=== PATIENT | male | born 1960 | race Caucasian/White ===

== ENCOUNTER 2018-11-03 15:09 | Outpatient (CLI) | payer OTHER ==
[2018-11-03 18:05] LABS: BASOPHILS # (AUTO) 0.1 10^3/uL (0.0-0.1); EOSINOPHILS # (AUTO) 0.1 10^3/uL (0.0-0.7); EOSINOPHILS % (AUTO) 1.6 %; HGB - HEMOGLOBIN 11.5 g/dL (14.0-18.0); LYMPHOCYTES # (AUTO) 1.3 10^3/uL (1.5-3.5); LYMPHOCYTES % (AUTO) 15.3 %; MEAN CORPUSCULAR HEMOGLOBIN 31.3 pg (27.0-31.0); MEAN CORPUSCULAR HGB CONC 33.8 g/dL (32.0-36.0); MEAN CORPUSCULAR VOLUME 92.7 fL (80.0-94.0); MEAN PLATELET VOLUME 8.4 fL (7.4-11.4); MONOCYTES # (AUTO) 0.5 10^3/uL (0.0-1.0); NEUTROPHILS # (AUTO) 6.7 10^3/uL (1.5-6.6); NEUTROPHILS % (AUTO) 76.1 %; PLT - PLATELET COUNT 276 10^3/uL (130-450); RED BLOOD COUNT 3.66 10^6/uL (4.70-6.10); RED CELL DISTRIBUTION WIDTH 13.2 % (12.0-15.0); WHITE BLOOD COUNT 8.8 x10^3/uL (4.8-10.8)
== END 2018-11-03 15:10 | disposition home or self-care (01) ==
LOC: LAB.F 15:09
PROVIDERS: ATTEND Emergency Medicine
DX: N18.4 Chronic kidney disease, stage 4 (severe) (principal)
CPT/HCPCS: 36415; 82565; 85025

== ENCOUNTER 2018-11-17 12:55 | Outpatient (CLI) | payer OTHER ==
[2018-11-17 17:43] LABS: BASOPHILS % (AUTO) 0.9 %; EOSINOPHILS # (AUTO) 0.2 10^3/uL (0.0-0.7); EOSINOPHILS % (AUTO) 3.7 %; HGB - HEMOGLOBIN 11.2 g/dL (14.0-18.0); LYMPHOCYTES # (AUTO) 1.3 10^3/uL (1.5-3.5); LYMPHOCYTES % (AUTO) 23.9 %; MEAN CORPUSCULAR HEMOGLOBIN 31.4 pg (27.0-31.0); MEAN CORPUSCULAR HGB CONC 33.6 g/dL (32.0-36.0); MEAN CORPUSCULAR VOLUME 93.3 fL (80.0-94.0); MEAN PLATELET VOLUME 8.7 fL (7.4-11.4); MONOCYTES # (AUTO) 0.4 10^3/uL (0.0-1.0); MONOCYTES % (AUTO) 8.3 %; NEUTROPHILS # (AUTO) 3.4 10^3/uL (1.5-6.6); NEUTROPHILS % (AUTO) 63.2 %; PLT - PLATELET COUNT 231 10^3/uL (130-450); RED BLOOD COUNT 3.56 10^6/uL (4.70-6.10); WHITE BLOOD COUNT 5.3 x10^3/uL (4.8-10.8)
[2018-11-17 17:58] LABS: CREATININE 4.4 mg/dL (0.6-1.2)
== END 2018-11-17 12:56 | disposition home or self-care (01) ==
LOC: LAB.F 12:55
PROVIDERS: ATTEND Emergency Medicine
DX: N18.4 Chronic kidney disease, stage 4 (severe) (principal)
CPT/HCPCS: 36415; 82565; 85025

== ENCOUNTER 2018-12-04 13:43 | Outpatient (CLI) | payer OTHER ==
[2018-12-04 18:18] LABS: BASOPHILS % (AUTO) 0.5 %; EOSINOPHILS # (AUTO) 0.2 10^3/uL (0.0-0.7); EOSINOPHILS % (AUTO) 3.4 %; HGB - HEMOGLOBIN 11.5 g/dL (14.0-18.0); LYMPHOCYTES # (AUTO) 1.5 10^3/uL (1.5-3.5); LYMPHOCYTES % (AUTO) 26.6 %; MEAN CORPUSCULAR HEMOGLOBIN 31.1 pg (27.0-31.0); MEAN CORPUSCULAR HGB CONC 33.1 g/dL (32.0-36.0); MEAN CORPUSCULAR VOLUME 93.9 fL (80.0-94.0); MEAN PLATELET VOLUME 8.5 fL (7.4-11.4); MONOCYTES # (AUTO) 0.4 10^3/uL (0.0-1.0); MONOCYTES % (AUTO) 7.3 %; NEUTROPHILS # (AUTO) 3.4 10^3/uL (1.5-6.6); NEUTROPHILS % (AUTO) 62.2 %; PLT - PLATELET COUNT 235 10^3/uL (130-450); RED BLOOD COUNT 3.72 10^6/uL (4.70-6.10); RED CELL DISTRIBUTION WIDTH 13.1 % (12.0-15.0); WHITE BLOOD COUNT 5.5 x10^3/uL (4.8-10.8)
[2018-12-04 18:43] LABS: CREATININE 3.5 mg/dL (0.6-1.2)
== END 2018-12-04 13:44 | disposition home or self-care (01) ==
LOC: LAB.F 13:43
PROVIDERS: ATTEND Emergency Medicine
DX: N18.4 Chronic kidney disease, stage 4 (severe) (principal)
CPT/HCPCS: 36415; 82565; 85025

== ENCOUNTER 2018-12-17 11:10 | Outpatient (CLI) | payer OTHER ==
[2018-12-17 18:01] LABS: BASOPHILS % (AUTO) 0.7 %; EOSINOPHILS # (AUTO) 0.2 10^3/uL (0.0-0.7); EOSINOPHILS % (AUTO) 2.7 %; LYMPHOCYTES # (AUTO) 1.1 10^3/uL (1.5-3.5); MEAN CORPUSCULAR HEMOGLOBIN 31.2 pg (27.0-31.0); MEAN CORPUSCULAR HGB CONC 34.2 g/dL (32.0-36.0); MEAN CORPUSCULAR VOLUME 91.2 fL (80.0-94.0); MEAN PLATELET VOLUME 8.7 fL (7.4-11.4); MONOCYTES # (AUTO) 0.5 10^3/uL (0.0-1.0); MONOCYTES % (AUTO) 7.9 %; NEUTROPHILS # (AUTO) 3.9 10^3/uL (1.5-6.6); NEUTROPHILS % (AUTO) 68.7 %; PLT - PLATELET COUNT 203 10^3/uL (130-450); RED BLOOD COUNT 3.51 10^6/uL (4.70-6.10); RED CELL DISTRIBUTION WIDTH 12.9 % (12.0-15.0); WHITE BLOOD COUNT 5.7 x10^3/uL (4.8-10.8)
[2018-12-17 18:25] LABS: CREATININE 3.9 mg/dL (0.6-1.2)
== END 2018-12-17 23:59 | disposition home or self-care (01) ==
LOC: LAB.F 11:10
PROVIDERS: ATTEND Emergency Medicine
DX: N18.4 Chronic kidney disease, stage 4 (severe) (principal)
CPT/HCPCS: 36415; 82565; 82728; 83540; 84466; 85025

== ENCOUNTER 2019-01-01 13:45 | Outpatient (CLI) | payer OTHER ==
[2019-01-01 17:38] LABS: BASOPHILS % (AUTO) 0.7 %; EOSINOPHILS # (AUTO) 0.2 10^3/uL (0.0-0.7); EOSINOPHILS % (AUTO) 2.7 %; HGB - HEMOGLOBIN 11.3 g/dL (14.0-18.0); LYMPHOCYTES # (AUTO) 1.3 10^3/uL (1.5-3.5); LYMPHOCYTES % (AUTO) 24.1 %; MEAN CORPUSCULAR HEMOGLOBIN 31.2 pg (27.0-31.0); MEAN CORPUSCULAR HGB CONC 34.3 g/dL (32.0-36.0); MEAN PLATELET VOLUME 8.4 fL (7.4-11.4); MONOCYTES # (AUTO) 0.5 10^3/uL (0.0-1.0); MONOCYTES % (AUTO) 8.6 %; NEUTROPHILS # (AUTO) 3.6 10^3/uL (1.5-6.6); NEUTROPHILS % (AUTO) 63.9 %; PLT - PLATELET COUNT 251 10^3/uL (130-450); RED BLOOD COUNT 3.61 10^6/uL (4.70-6.10); RED CELL DISTRIBUTION WIDTH 13.2 % (12.0-15.0); WHITE BLOOD COUNT 5.6 x10^3/uL (4.8-10.8)
[2019-01-01 18:11] LABS: CREATININE 4.2 mg/dL (0.6-1.2)
== END 2019-01-01 13:46 | disposition home or self-care (01) ==
LOC: LAB.F 13:45
PROVIDERS: ATTEND Emergency Medicine
DX: N18.4 Chronic kidney disease, stage 4 (severe) (principal)
CPT/HCPCS: 36415; 82565; 83540; 84466; 85025

== ENCOUNTER 2019-02-01 11:41 | Outpatient (CLI) | payer OTHER ==
[2019-02-01 17:59] LABS: BASOPHILS % (AUTO) 0.5 %; EOSINOPHILS # (AUTO) 0.2 10^3/uL (0.0-0.7); EOSINOPHILS % (AUTO) 2.7 %; HGB - HEMOGLOBIN 11.4 g/dL (14.0-18.0); LYMPHOCYTES # (AUTO) 1.3 10^3/uL (1.5-3.5); LYMPHOCYTES % (AUTO) 22.7 %; MEAN CORPUSCULAR HEMOGLOBIN 31.4 pg (27.0-31.0); MEAN CORPUSCULAR HGB CONC 33.9 g/dL (32.0-36.0); MEAN CORPUSCULAR VOLUME 92.6 fL (80.0-94.0); MEAN PLATELET VOLUME 8.5 fL (7.4-11.4); MONOCYTES # (AUTO) 0.5 10^3/uL (0.0-1.0); MONOCYTES % (AUTO) 8.6 %; NEUTROPHILS # (AUTO) 3.7 10^3/uL (1.5-6.6); NEUTROPHILS % (AUTO) 65.5 %; PLT - PLATELET COUNT 222 10^3/uL (130-450); RED BLOOD COUNT 3.63 10^6/uL (4.70-6.10); RED CELL DISTRIBUTION WIDTH 13.6 % (12.0-15.0); WHITE BLOOD COUNT 5.7 x10^3/uL (4.8-10.8)
[2019-02-01 20:29] LABS: CREATININE 4.5 mg/dL (0.6-1.2)
== END 2019-02-01 11:42 | disposition home or self-care (01) ==
LOC: LAB.F 11:41
PROVIDERS: ATTEND Emergency Medicine
DX: N18.4 Chronic kidney disease, stage 4 (severe) (principal)
CPT/HCPCS: 36415; 82565; 83540; 84466; 85025

== ENCOUNTER 2019-02-26 11:45 | Outpatient (CLI) | payer OTHER ==
[2019-02-26 17:40] LABS: BASOPHILS # (AUTO) 0.1 10^3/uL (0.0-0.1); BASOPHILS % (AUTO) 1.2 %; EOSINOPHILS # (AUTO) 0.2 10^3/uL (0.0-0.7); EOSINOPHILS % (AUTO) 3.9 %; LYMPHOCYTES # (AUTO) 1.2 10^3/uL (1.5-3.5); LYMPHOCYTES % (AUTO) 26.6 %; MEAN CORPUSCULAR HEMOGLOBIN 31.1 pg (27.0-31.0); MEAN CORPUSCULAR HGB CONC 33.7 g/dL (32.0-36.0); MEAN CORPUSCULAR VOLUME 92.4 fL (80.0-94.0); MEAN PLATELET VOLUME 8.7 fL (7.4-11.4); MONOCYTES # (AUTO) 0.4 10^3/uL (0.0-1.0); MONOCYTES % (AUTO) 9.5 %; NEUTROPHILS # (AUTO) 2.6 10^3/uL (1.5-6.6); NEUTROPHILS % (AUTO) 58.8 %; PLT - PLATELET COUNT 213 10^3/uL (130-450); RED BLOOD COUNT 3.53 10^6/uL (4.70-6.10); RED CELL DISTRIBUTION WIDTH 13.5 % (12.0-15.0); WHITE BLOOD COUNT 4.5 x10^3/uL (4.8-10.8)
== END 2019-02-26 23:59 | disposition home or self-care (01) ==
LOC: LAB.F 11:45
PROVIDERS: ATTEND Emergency Medicine
DX: N18.4 Chronic kidney disease, stage 4 (severe) (principal)
CPT/HCPCS: 36415; 82565; 83540; 84466; 85025

== ENCOUNTER 2019-03-30 11:50 | Outpatient (CLI) | payer OTHER ==
[2019-03-30 18:04] LABS: BASOPHILS # (AUTO) 0.1 10^3/uL (0.0-0.1); BASOPHILS % (AUTO) 0.9 %; EOSINOPHILS # (AUTO) 0.3 10^3/uL (0.0-0.7); HGB - HEMOGLOBIN 11.2 g/dL (14.0-18.0); LYMPHOCYTES # (AUTO) 1.2 10^3/uL (1.5-3.5); LYMPHOCYTES % (AUTO) 19.1 %; MEAN CORPUSCULAR HEMOGLOBIN 30.4 pg (27.0-31.0); MEAN CORPUSCULAR HGB CONC 32.8 g/dL (32.0-36.0); MEAN CORPUSCULAR VOLUME 92.7 fL (80.0-94.0); MONOCYTES # (AUTO) 0.5 10^3/uL (0.0-1.0); MONOCYTES % (AUTO) 8.5 %; NEUTROPHILS # (AUTO) 4.2 10^3/uL (1.5-6.6); NEUTROPHILS % (AUTO) 67.2 %; PLT - PLATELET COUNT 201 10^3/uL (130-450); RED BLOOD COUNT 3.68 10^6/uL (4.70-6.10); WHITE BLOOD COUNT 6.3 x10^3/uL (4.8-10.8)
[2019-03-30 18:33] LABS: CREATININE 4.5 mg/dL (0.6-1.2)
== END 2019-03-30 11:51 | disposition home or self-care (01) ==
LOC: LAB.F 11:50
PROVIDERS: ATTEND Emergency Medicine
DX: N18.4 Chronic kidney disease, stage 4 (severe) (principal)
CPT/HCPCS: 36415; 82565; 83540; 84466; 85025

== ENCOUNTER 2019-04-28 14:24 | Outpatient (CLI) | payer OTHER ==
[2019-04-28 17:11] LABS: BASOPHILS % (AUTO) 0.6 %; EOSINOPHILS % (AUTO) 0.6 %; HGB - HEMOGLOBIN 10.5 g/dL (14.0-18.0); LYMPHOCYTES # (AUTO) 0.4 10^3/uL (1.5-3.5); LYMPHOCYTES % (AUTO) 10.5 %; MEAN CORPUSCULAR HEMOGLOBIN 29.9 pg (27.0-31.0); MEAN CORPUSCULAR HGB CONC 32.3 g/dL (32.0-36.0); MEAN CORPUSCULAR VOLUME 92.6 fL (80.0-94.0); MEAN PLATELET VOLUME 10.5 fL (7.4-11.4); MONOCYTES # (AUTO) 0.5 10^3/uL (0.0-1.0); MONOCYTES % (AUTO) 15.5 %; NEUTROPHILS # (AUTO) 2.5 10^3/uL (1.5-6.6); NEUTROPHILS % (AUTO) 72.5 %; PLT - PLATELET COUNT 194 10^3/uL (130-450); RED BLOOD COUNT 3.51 10^6/uL (4.70-6.10); WHITE BLOOD COUNT 3.4 x10^3/uL (4.8-10.8)
[2019-04-28 18:38] LABS: CREATININE 4.3 mg/dL (0.6-1.2)
== END 2019-04-28 14:25 | disposition home or self-care (01) ==
LOC: LAB.S 14:24
PROVIDERS: ATTEND Emergency Medicine
DX: N18.4 Chronic kidney disease, stage 4 (severe) (principal)
CPT/HCPCS: 36415; 82565; 83540; 84466; 85025

== ENCOUNTER 2019-05-02 15:46 | Emergency (ER) | payer OTHER ==
[2019-05-02] MEDS ORDERED: ASPIRIN CHEW 81 MG TABLET PO STA (15:57)
--- NOTE | 2019-05-02 16:00 | ED Physician Documentation ---
History of Present Illness - Stated complaint Stated Complaint: SOA - Chief complaint Chief Complaint: Resp - History obtained from History obtained from: Patient - Additonal information Additional information: Patient is a 58-year-old male with cardiac history including bypass, CAD, hyperlipidemia, hypertension presenting with nearly 1 week of shortness of breath, chest discomfort, productive cough without fever. Patient reports having a difficult time taking a deep breath. He denies abdominal pain, but has been having nausea and dry heaves. No changes in urination or stool. Patient also denies any leg swelling or pain. Patient's only anticoagulation is aspirin. Review of Systems Constitutional: denies: Fever Cardiac: reports: Chest pain / pressure. denies: Palpitations, Pedal edema Respiratory: reports: Dyspnea, Cough GI: reports: Nausea, Vomiting. denies: Abdominal Pain, Constipation, Diarrhea : denies: Dysuria PD PAST MEDICAL HISTORY - Past Medical History Past Medical History: Yes Cardiovascular: Hypertension, High cholesterol, Coronary artery disease - Past Surgical History Cardiovascular: CABG Other past surgical history: Multiple orthopedic repairs - Allergies Allergies/Adverse Reactions: Allergies Allergy/AdvReac Type Severity Reaction Status Date / Time methylphenidate AdvReac Rash Verified 05/02/19 15:55 Penicillins AdvReac Rash Verified 05/02/19 15:55 pramipexole AdvReac Rash Verified 05/02/19 15:55 simvastatin AdvReac Rash Verified 05/02/19 15:55 PD ED PE NORMAL - Vitals Vital signs reviewed: Yes - General General: Alert and oriented X 3, No acute distress, Well developed/nourished - HEENT HEENT: Atraumatic, Moist mucous membranes - Neck Neck: Supple, no meningeal sign - Cardiac Cardiac: RRR, No murmur - Respiratory Respiratory: No respiratory distress, Clear bilaterally - Abdomen Abdomen: Normal bowel sounds, Soft, Non tender, Non distended - Derm Derm: Normal color, Warm and dry, No rash - Extremities Extremities: No deformity, No tenderness to palpate, No edema - Neuro Neuro: Alert and oriented X 3, No motor deficit, No sensory deficit - Psych Psych: Normal mood, Normal affect Results - Vitals Vitals: Vital Signs - 24 hr 05/02/19 05/02/19 05/02/19 15:50 17:54 19:00 Temperature 36.9 C Heart Rate 65 53 L 58 L Respiratory 20 15 16 Rate Blood Pressure 154/63 H 123/68 135/69 H O2 Saturation 98 98 95 Oxygen O2 Source Room air - EKG (time done) 1559 Rate: Rate (enter#) (65) Rhythm: NSR QRS: LVH - Labs Labs: Laboratory Tests 05/02/19 05/02/19 05/02/19 16:08 16:08 16:08 WBC 6.7 RBC 3.80 L Hgb 11.5 L Hct 34.1 L MCV 89.7 MCH 30.3 MCHC 33.7 RDW 12.8 Plt Count 172 MPV 10.5 Neut # (Auto) 5.2 Lymph # (Auto) 0.9 L [place] # (Auto) 0.5 Eos # (Auto) 0.1 Baso # (Auto) 0.0 Absolute Nucleated RBC 0.00 Nucleated RBC % 0.0 PT 10.8 INR 1.0 APTT 27.8 Sodium 136 Potassium 3.8 Chloride 95 L Carbon Dioxide 24 Anion Gap 17.0 H BUN 70 H Creatinine 4.4 H Estimated GFR (MDRD) 14 L Glucose 253 H Lactic Acid Calcium 9.8 Total Bilirubin 0.8 AST 26 ALT 22 Alkaline Phosphatase 68 Troponin I High Sens B-Natriuretic Peptide Total Protein 6.9 Albumin 3.8 Globulin 3.1 Albumin/Globulin Ratio 1.2 Lipase 23 Urine Color Urine Clarity Urine pH Ur Specific [place] Urine Protein Urine Glucose (UA) Urine Ketones Urine Occult Blood Urine Nitrite Urine Bilirubin Urine Urobilinogen Ur Leukocyte Esterase Urine RBC Urine WBC Ur Squamous Epith Cells Urine Bacteria Urine Casts Urine Mucus Ur Microscopic Review Urine Culture Comments 05/02/19 05/02/19 05/02/19 16:08 16:08 16:08 WBC RBC Hgb Hct MCV MCH MCHC RDW Plt Count MPV Neut # (Auto) Lymph # (Auto) [place] # (Auto) Eos # (Auto) Baso # (Auto) Absolute Nucleated RBC Nucleated RBC % PT INR APTT Sodium Potassium Chloride Carbon Dioxide Anion Gap BUN Creatinine Estimated GFR (MDRD) Glucose Lactic Acid 1.2 Calcium Total Bilirubin AST ALT Alkaline Phosphatase Troponin I High Sens 41.4 H* B-Natriuretic Peptide 80 Total Protein Albumin Globulin Albumin/Globulin Ratio Lipase Urine Color Urine Clarity Urine pH Ur Specific [place] Urine Protein Urine Glucose (UA) Urine Ketones Urine Occult Blood Urine Nitrite Urine Bilirubin Urine Urobilinogen Ur Leukocyte Esterase Urine RBC Urine WBC Ur Squamous Epith Cells Urine Bacteria Urine Casts Urine Mucus Ur Microscopic Review Urine Culture Comments 05/02/19 05/02/19 17:00 18:57 WBC RBC Hgb Hct MCV MCH MCHC RDW Plt Count MPV Neut # (Auto) Lymph # (Auto) [place] # (Auto) Eos # (Auto) Baso # (Auto) Absolute Nucleated RBC Nucleated RBC % PT INR APTT Sodium Potassium Chloride Carbon Dioxide Anion Gap BUN Creatinine Estimated GFR (MDRD) Glucose Lactic Acid Calcium Total Bilirubin AST ALT Alkaline Phosphatase Troponin I High Sens 41.3 H* B-Natriuretic Peptide Total Protein Albumin Globulin Albumin/Globulin Ratio Lipase Urine Color YELLOW Urine Clarity HAZY Urine pH 5.0 Ur Specific [place] 1.015 Urine Protein 100 H Urine Glucose (UA) 250 H Urine Ketones NEGATIVE Urine Occult Blood TRACE-INTA Urine Nitrite NEGATIVE Urine Bilirubin NEGATIVE Urine Urobilinogen 0.2 (NORMAL) Ur Leukocyte Esterase NEGATIVE Urine RBC 0-5 Urine WBC 0-3 Ur Squamous Epith Cells NONE SEEN Urine Bacteria None Seen Urine Casts 3-5 Hyaline Casts Urine Mucus Few Strands Ur Microscopic Review INDICATED Urine Culture Comments NOT INDICATED PD MEDICAL DECISION MAKING - ED course Complexity details: reviewed results, re-evaluated patient, considered differential, d/w patient, d/w family ED course: Patient has significant cardiac history and is at high risk for cardiac event and to have concerns for possible MS, ACS, unstable angina. Feel that dissection, aneurysm, PE of lower likelihood. Patient also reports subjective fever and cough which does raise suspicion for pneumonia. Patient is comfortable at this time and received aspirin, but did not require other medications. EKG found evidence of LVH, but no other signs of ischemia. Chest x-ray did comment on possible airway disease, but no particular infiltrates or pulmonary edema noted. Screening lab work reflected underlying disease processes including end-stage renal disease with elevated creatinine, although similar to previous measurements. High-sensitivity troponin elevated in the low 40s. Patient has been having symptoms for several days at this time feel that repeat troponin is warranted. Also calculated HEART score to be 5 with moderate risk of cardiac event. Repeat high-sensitivity troponin similar to prior measurement. As patient is a [facility] patient, contacted [facility] and spoke with [facility] physician who is amenable to patient being transferred to [facility] for further cardiac evaluation. Also recommended placement of Nitropaste. Patient advised of results and recommendations and is comfortable with this plan. Departure - Departure Disposition: 02 Transfer Acute Care Hosp Clinical Impression: Chest pain Qualifiers: Chest pain type: unspecified Qualified Code(s): R07.9 - Chest pain, unspecified
[2019-05-02 16:16] LABS: BASOPHILS % (AUTO) 0.3 %; EOSINOPHILS # (AUTO) 0.1 10^3/uL (0.0-0.7); EOSINOPHILS % (AUTO) 1.2 %; HGB - HEMOGLOBIN 11.5 g/dL (14.0-18.0); LYMPHOCYTES # (AUTO) 0.9 10^3/uL (1.5-3.5); LYMPHOCYTES % (AUTO) 12.9 %; MEAN CORPUSCULAR HEMOGLOBIN 30.3 pg (27.0-31.0); MEAN CORPUSCULAR HGB CONC 33.7 g/dL (32.0-36.0); MEAN CORPUSCULAR VOLUME 89.7 fL (80.0-94.0); MEAN PLATELET VOLUME 10.5 fL (7.4-11.4); MONOCYTES # (AUTO) 0.5 10^3/uL (0.0-1.0); MONOCYTES % (AUTO) 7.7 %; NEUTROPHILS # (AUTO) 5.2 10^3/uL (1.5-6.6); NEUTROPHILS % (AUTO) 77.6 %; PLT - PLATELET COUNT 172 10^3/uL (130-450); RED CELL DISTRIBUTION WIDTH 12.8 % (12.0-15.0); WHITE BLOOD COUNT 6.7 x10^3/uL (4.8-10.8)
[2019-05-02 16:23] LABS: PT - PROTHROMBIN TIME 10.8 secs (9.9-12.6)
[2019-05-02 16:33] LABS: BILIRUBIN,TOTAL 0.8 mg/dL (0.2-1.0); CALCIUM 9.8 mg/dL (8.5-10.3); CREATININE 4.4 mg/dL (0.6-1.2)
[2019-05-02 16:34] LABS: ALBUMIN 3.8 g/dL (3.2-5.5); ALBUMIN/GLOBULIN RATIO 1.2 (1.0-2.2); TOTAL PROTEIN 6.9 g/dL (6.7-8.2)
[2019-05-02 16:35] LABS: PARTIAL THROMBOPLASTIN TIME 27.8 secs (24.9-33.3)
--- NOTE | 2019-05-02 16:48 | XRAY Report ---
Reason: cough Procedure Date: 05/02/2019 Accession Number: [id number] / [id number] Procedure: XR - Chest 2 View X-Ray CPT Code: 34260 FULL RESULT: EXAM: CHEST RADIOGRAPHY EXAM DATE: 05/02/2019 04:32 PM. CLINICAL HISTORY: Cough. COMPARISON: None. TECHNIQUE: 2 views. FINDINGS: Lungs/Pleura: Increased lung markings. No focal opacity. No effusions. Mediastinum: Heart is normal in size. CABG. Other: Median sternotomy. IMPRESSION: Increased lung markings indicating underlying airways disease RADIA
[2019-05-02 17:09] LABS: BILIRUBIN,URINE NEGATIVE (NEGATIVE); GLUCOSE, URINE (UA) 250 mg/dL (NEGATIVE); KETONES,URINE (UA) NEGATIVE (NEGATIVE); LEUKOCYTE ESTERASE, URINE NEGATIVE (NEGATIVE); NITRITE,URINE NEGATIVE (NEGATIVE); OCCULT BLOOD,URINE TRACE-INTA (NEGATIVE); PROTEIN,URINE 100 mg/dL (NEGATIVE); UROBILINOGEN,URINE 0.2 (NORMAL) E.U./dL (NORMAL)
[2019-05-02 17:16] LABS: CLARITY,URINE HAZY (CLEAR)
[2019-05-02 17:17] LABS: BACTERIA,URINE None Seen /HPF (None Seen); CASTS, URINE 3-5 Hyaline Casts /LPF; MUCUS,URINE Few Strands; RBC,URINE 0-5 /HPF (0-5); SQUAMOUS EPITHELIAL CELL,UR NONE SEEN (<= Few)
[2019-05-02] MEDS ORDERED: NITROGLYCERIN 2% PASTE TOP STA (20:53)
[2019-05-02] MEDS ORDERED: HEPARIN 25000UNITS/500ML (D5W) 25,000 UNIT/500 ML BAG IV STA (22:11)
[2019-05-02] MEDS ORDERED: METOPROLOL TARTRATE 50 MG TABLET PO STA (22:20)
[2019-05-02 23:44] VITALS: BP 133/71
== END 2019-05-03 00:09 | disposition short-term general hospital (02) ==
LOC: EDUNIT# → ED 15:46
DX: R07.9 Chest pain, unspecified (principal); I13.11 Hypertensive heart and chronic kidney disease without heart failure, with stage 5 chronic kidney disease, or end stage renal disease; N18.6 End stage renal disease; I25.10 Atherosclerotic heart disease of native coronary artery without angina pectoris; Z95.1 Presence of aortocoronary bypass graft; E78.5 Hyperlipidemia, unspecified
CPT/HCPCS: 36415; 71046; 80053; 81001; 83605; 83690; 83880; 85025; 85610; 85730; 87040; 93005; 96374; 99284; 99285; A9270; 81003; 84484; 87086

== ENCOUNTER 2019-05-30 21:11 | Emergency (ER) | payer OTHER ==
--- NOTE | 2019-05-30 21:34 | ED Physician Documentation ---
History of Present Illness - Stated complaint Stated Complaint: SOA/VOM/HEADACHE - Chief complaint Chief Complaint: General PD PAST MEDICAL HISTORY - Past Medical History Cardiovascular: Hypertension, High cholesterol, Coronary artery disease Respiratory: None Neuro: Peripheral neuropathy Endocrine/Autoimmune: Type 1 diabetes GI: None : Other HEENT: None Psych: None Derm: None - Past Surgical History Past Surgical History: Yes Cardiovascular: CABG - Present Medications Home Medications: Ambulatory Orders Medication Instructions Recorded Confirmed Aspirin Chewable [St Franky 81 mg PO DAILY 05/02/19 05/02/19 Aspirin] Calcitriol [Rocaltrol] 0.5 mcg PO DAILY 05/02/19 05/02/19 Epoetin Mario [Procrit] 3,000 unit IJ ONCE 05/02/19 05/02/19 Ferrous Sulfate 325 mg PO DAILY 05/02/19 05/02/19 Furosemide 40 mg PO BID 05/02/19 05/02/19 Glucagon,Human Recombinant 1 mg IJ PRN PRN 05/02/19 05/02/19 [Glucagon Emergency Kit] Insulin Lispro [Humalog] 1 unit SQ PRN PRN 05/02/19 05/02/19 Levothyroxine [Synthroid] 125 mcg PO DAILY 05/02/19 05/02/19 Metoprolol Succinate/Hctz 25 mg PO DAILY 05/02/19 05/02/19 [Metoprolol ER-Hctz 25-12.5 mg] Modafinil 300 mg PO DAILY 05/02/19 05/02/19 Nitroglycerin 0.4 mg SL PRN PRN 05/02/19 05/02/19 Omeprazole Magnesium 20 mg PO DAILY 05/02/19 05/02/19 Pravastatin [Pravachol] 40 mg PO DAILY 05/02/19 05/02/19 Prazosin [Minipress] 1 mg PO BID 05/02/19 05/02/19 Sildenafil Citrate [Sildenafil] 50 mg PO PRN PRN 05/02/19 05/02/19 amLODIPine [Norvasc] 10 mg PO DAILY 05/02/19 05/02/19 buPROPion HCl [Bupropion HCl ER] 150 mg PO DAILY 05/02/19 05/02/19 - Allergies Allergies/Adverse Reactions: Allergies Allergy/AdvReac Type Severity Reaction Status Date / Time methylphenidate AdvReac Rash Verified 05/02/19 15:55 Penicillins AdvReac Rash Verified 05/02/19 15:55 pramipexole AdvReac Rash Verified 05/02/19 15:55 simvastatin AdvReac Rash Verified 05/02/19 15:55 - Social History Does the pt smoke?: No Smoking Status: Never smoker Does the pt drink ETOH?: Yes Does the pt have substance abuse?: No - Immunizations Immunizations are current?: Yes - POLST Patient has POLST: No Results - Vitals Vitals: Vital Signs - 24 hr 05/30/19 21:15 Temperature 37.4 C Heart Rate 82 Respiratory 14 Rate Blood Pressure 181/86 H O2 Saturation 96 Oxygen O2 Source Room air
[2019-05-30] MEDS ORDERED: ONDANSETRON ODT 4 MG TABLET TL STA (22:03)
[2019-05-30 22:15] LABS: BASOPHILS % (AUTO) 0.3 %; EOSINOPHILS % (AUTO) 0.4 %; HGB - HEMOGLOBIN 8.4 g/dL (14.0-18.0); LYMPHOCYTES # (AUTO) 0.5 10^3/uL (1.5-3.5); LYMPHOCYTES % (AUTO) 6.7 %; MEAN CORPUSCULAR HEMOGLOBIN 30.7 pg (27.0-31.0); MEAN CORPUSCULAR HGB CONC 33.5 g/dL (32.0-36.0); MEAN CORPUSCULAR VOLUME 91.6 fL (80.0-94.0); MEAN PLATELET VOLUME 10.3 fL (7.4-11.4); MONOCYTES # (AUTO) 0.4 10^3/uL (0.0-1.0); MONOCYTES % (AUTO) 6.4 %; NEUTROPHILS # (AUTO) 5.8 10^3/uL (1.5-6.6); NEUTROPHILS % (AUTO) 85.9 %; PLT - PLATELET COUNT 188 10^3/uL (130-450); RED BLOOD COUNT 2.74 10^6/uL (4.70-6.10); RED CELL DISTRIBUTION WIDTH 13.5 % (12.0-15.0); WHITE BLOOD COUNT 6.8 x10^3/uL (4.8-10.8)
--- NOTE | 2019-05-30 22:19 | ED Physician Documentation ---
History of Present Illness - Stated complaint Stated Complaint: SOA/VOM/HEADACHE - Chief complaint Chief Complaint: General - History obtained from History obtained from: Patient - History of Present Illness Timing: How many days ago (4) Improved by: nothing Worsened by: no exacerbating factors - Additonal information Additional information: recently started HD after having CA last month (2 stents placed). he is dialyzed M--. since dialysis on Friday, he has had nausea, vomiting, generalized weakness, racing heart, high blood pressure, difficulty focusing thoughts Review of Systems Constitutional: reports: Fatigue. denies: Fever, Chills, Myalgias Cardiac: reports: Reviewed and negative Respiratory: reports: Reviewed and negative GI: reports: Nausea, Vomiting. denies: Abdominal Pain Neurologic: reports: Generalized weakness. denies: Focal weakness, Numbness, Headache PD PAST MEDICAL HISTORY - Past Medical History Cardiovascular: Hypertension, High cholesterol, Coronary artery disease Respiratory: None Neuro: Peripheral neuropathy Endocrine/Autoimmune: Type 1 diabetes GI: None : Other HEENT: None Psych: None Derm: None - Past Surgical History Past Surgical History: Yes Cardiovascular: CABG - Present Medications Home Medications: Ambulatory Orders Medication Instructions Recorded Confirmed Aspirin Chewable [St Franky 81 mg PO DAILY 05/02/19 05/02/19 Aspirin] Calcitriol [Rocaltrol] 0.5 mcg PO DAILY 05/02/19 05/02/19 Epoetin Mario [Procrit] 3,000 unit IJ ONCE 05/02/19 05/02/19 Ferrous Sulfate 325 mg PO DAILY 05/02/19 05/02/19 Furosemide 40 mg PO BID 05/02/19 05/02/19 Glucagon,Human Recombinant 1 mg IJ PRN PRN 05/02/19 05/02/19 [Glucagon Emergency Kit] Insulin Lispro [Humalog] 1 unit SQ PRN PRN 05/02/19 05/02/19 Levothyroxine [Synthroid] 125 mcg PO DAILY 05/02/19 05/02/19 Metoprolol Succinate/Hctz 25 mg PO DAILY 05/02/19 05/02/19 [Metoprolol ER-Hctz 25-12.5 mg] Modafinil 300 mg PO DAILY 05/02/19 05/02/19 Nitroglycerin 0.4 mg SL PRN PRN 05/02/19 05/02/19 Omeprazole Magnesium 20 mg PO DAILY 05/02/19 05/02/19 Pravastatin [Pravachol] 40 mg PO DAILY 05/02/19 05/02/19 Prazosin [Minipress] 1 mg PO BID 05/02/19 05/02/19 Sildenafil Citrate [Sildenafil] 50 mg PO PRN PRN 05/02/19 05/02/19 amLODIPine [Norvasc] 10 mg PO DAILY 05/02/19 05/02/19 buPROPion HCl [Bupropion HCl ER] 150 mg PO DAILY 05/02/19 05/02/19 Ondansetron Odt [Zofran] 4 mg TL Q6H PRN #10 tablet 05/31/19 - Allergies Allergies/Adverse Reactions: Allergies Allergy/AdvReac Type Severity Reaction Status Date / Time methylphenidate AdvReac Rash Verified 05/02/19 15:55 Penicillins AdvReac Rash Verified 05/02/19 15:55 pramipexole AdvReac Rash Verified 05/02/19 15:55 simvastatin AdvReac Rash Verified 05/02/19 15:55 - Social History Does the pt smoke?: No Smoking Status: Never smoker Does the pt drink ETOH?: Yes Does the pt have substance abuse?: No - Immunizations Immunizations are current?: Yes - POLST Patient has POLST: No PD ED PE NORMAL - Vitals Vital signs reviewed: Yes - General General: Alert and oriented X 3, No acute distress, Well developed/nourished - HEENT HEENT: PERRL, EOMI, Moist mucous membranes - Neck Neck: Supple, no meningeal sign - Cardiac Cardiac: RRR, No murmur - Respiratory Respiratory: No respiratory distress, Clear bilaterally - Abdomen Abdomen: Soft, Non tender - Derm Derm: Normal color, Warm and dry - Extremities Extremities: No edema - Neuro Neuro: Alert and oriented X 3, 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, Normal speech Eye Opening: Spontaneous Motor: Obeys Commands Verbal: Oriented GCS Score: 15 Results - Vitals Vitals: Oxygen O2 Source Room air - EKG (time done) No standard instances Rate: Rate (enter#) (80) Rhythm: NSR [place]: Normal Intervals: Normal AR QRS: LVH Ischemia: Non specific changes (=5-=6) Compare to prior EKG: Unchanged from prior EKG - Labs Labs: Laboratory Tests 05/30/19 05/30/19 05/30/19 21:28 21:28 21:28 WBC 6.8 RBC 2.74 L Hgb 8.4 L Hct 25.1 L MCV 91.6 MCH 30.7 MCHC 33.5 RDW 13.5 Plt Count 188 MPV 10.3 Neut # (Auto) 5.8 Lymph # (Auto) 0.5 L [place] # (Auto) 0.4 Eos # (Auto) 0.0 Baso # (Auto) 0.0 Absolute Nucleated RBC 0.00 Nucleated RBC % 0.0 Sodium 129 L Potassium 3.1 L Chloride 91 L Carbon Dioxide 23 Anion Gap 15.0 H BUN 55 H Creatinine 4.8 H Estimated GFR (MDRD) 12 L Glucose 266 H Lactic Acid Calcium 8.6 Phosphorus 2.4 L Magnesium 1.9 Total Bilirubin 0.4 AST 31 ALT 30 Alkaline Phosphatase 73 B-Natriuretic Peptide 265 H Total Protein 6.5 L Albumin 3.4 Globulin 3.1 Albumin/Globulin Ratio 1.1 Lipase 17 L 05/30/19 22:15 WBC RBC Hgb Hct MCV MCH MCHC RDW Plt Count MPV Neut # (Auto) Lymph # (Auto) [place] # (Auto) Eos # (Auto) Baso # (Auto) Absolute Nucleated RBC Nucleated RBC % Sodium Potassium Chloride Carbon Dioxide Anion Gap BUN Creatinine Estimated GFR (MDRD) Glucose Lactic Acid 0.6 Calcium Phosphorus Magnesium Total Bilirubin AST ALT Alkaline Phosphatase B-Natriuretic Peptide Total Protein Albumin Globulin Albumin/Globulin Ratio Lipase PD MEDICAL DECISION MAKING - ED course Complexity details: reviewed results, re-evaluated patient, considered differential, d/w patient ED course: reassuring test results and reports feeling better after zofran. he is comfortable with discharge home and further emergent treatment / testing not indicated at this time Departure - Departure Disposition: 01 Home, Self Care Clinical Impression: Weakness Nausea & vomiting Qualifiers: Vomiting type: unspecified Vomiting Intractability: non-intractable Qualified Code(s): R11.2 - Nausea with vomiting, unspecified Condition: Good Instructions: ED Nausea Vomiting, ED Weakness [facility] Prescriptions: Ondansetron Odt [Zofran] 4 mg TL Q6H PRN #10 tablet PRN Reason: Nausea / Vomiting Discharge Date/Time: 05/31/19 01:21
[2019-05-30 22:27] LABS: ALBUMIN 3.4 g/dL (3.2-5.5); ALBUMIN/GLOBULIN RATIO 1.1 (1.0-2.2); BILIRUBIN,TOTAL 0.4 mg/dL (0.2-1.0); CALCIUM 8.6 mg/dL (8.5-10.3); CREATININE 4.8 mg/dL (0.6-1.2); MAGNESIUM 1.9 mg/dL (1.7-2.8); PHOSPHORUS 2.4 mg/dL (2.5-4.6); TOTAL PROTEIN 6.5 g/dL (6.7-8.2)
[2019-05-31 00:38] VITALS: BP 141/66
== END 2019-05-31 01:21 | disposition home or self-care (01) ==
LOC: ED 21:11
DX: R53.1 Weakness (principal); R11.2 Nausea with vomiting, unspecified; I10 Essential (primary) hypertension; E10.9 Type 1 diabetes mellitus without complications; Z99.2 Dependence on renal dialysis
CPT/HCPCS: 36415; 80053; 83605; 83690; 83735; 83880; 84100; 85025; 93005; 99283; 99284; Q0162

== ENCOUNTER 2020-04-25 16:03 | Emergency (ER) | payer MEDICARE, OTHER ==
--- NOTE | 2020-04-25 16:38 | ED Physician Documentation ---
History of Present Illness - Stated complaint Stated Complaint: MALE - Chief complaint Chief Complaint: Abd Pain - History obtained from History obtained from: Patient - History of Present Illness Pain level max: 6 Pain level now: 2 - Additonal information Additional information: 59-year-old male presents the emergency department with intermittent left testicular pain. Patient has had this off and on for about 1 month. He reports that he had a history of epididymitis about 30 years ago. Unsure if this feels similar. He feels like his left testicle is swollen, but this is a subjective finding only Patient is a type I diabetic with an insulin pump in place. He is also an end- stage renal dialysis patient on 3 times weekly dialysis. He reports that he continues to make urine but denies any dysuria. Not sexually active for more than a year. No penile discharge. Pt had bilateral inguinal hernia repair in his younger childhood Review of Systems Constitutional: denies: Fever, Chills Cardiac: denies: Chest pain / pressure, Palpitations Respiratory: denies: Dyspnea, Cough, Hemoptysis, Wheezing GI: denies: Abdominal Pain, Abdominal Swelling, Nausea, Vomiting : reports: Testicular pain. denies: Dysuria, Frequency, Hesitancy, Testicular mass Musculoskeletal: denies: Neck pain, Back pain, Extremity pain PD PAST MEDICAL HISTORY - Past Medical History Cardiovascular: Hypertension, High cholesterol, Coronary artery disease Respiratory: None Neuro: Peripheral neuropathy Endocrine/Autoimmune: Type 1 diabetes GI: None : Other HEENT: None Psych: None Derm: None - Past Surgical History Past Surgical History: Yes Cardiovascular: CABG - Present Medications Home Medications: Ambulatory Orders Medication Instructions Recorded Confirmed Aspirin Chewable [St Franky 81 mg PO DAILY 05/02/19 05/02/19 Aspirin] Furosemide 40 mg PO BID 05/02/19 05/02/19 Glucagon,Human Recombinant 1 mg IJ PRN PRN 05/02/19 05/02/19 [Glucagon Emergency Kit] Insulin Lispro [Humalog] 1 unit SQ PRN PRN 05/02/19 05/02/19 Levothyroxine [Synthroid] 125 mcg PO DAILY 05/02/19 05/02/19 Metoprolol Do/Hydrochlorothiaz 25 mg PO DAILY 05/02/19 05/02/19 [Metoprolol ER-Hctz 25-12.5 mg] Nitroglycerin 0.4 mg SL PRN PRN 05/02/19 05/02/19 Omeprazole Magnesium 20 mg PO DAILY 05/02/19 05/02/19 Pravastatin [Pravachol] 40 mg PO DAILY 05/02/19 05/02/19 Prazosin [Minipress] 1 mg PO BID 05/02/19 05/02/19 Sildenafil Citrate [Sildenafil] 50 mg PO PRN PRN 05/02/19 05/02/19 amLODIPine [Norvasc] 10 mg PO DAILY 05/02/19 05/02/19 buPROPion HCl [Bupropion HCl ER] 150 mg PO DAILY 05/02/19 05/02/19 modafiniL [Modafinil] 300 mg PO DAILY 05/02/19 05/02/19 Ondansetron Odt [Zofran] 4 mg TL Q6H PRN #10 tablet 05/31/19 Folic Acid/Vit B Complex and C 0.8 mg PO DAILY 04/25/20 04/25/20 [Nephro-Delmi Tablet] Lisinopril [Zestril] 20 mg PO BID 04/25/20 04/25/20 - Allergies Allergies/Adverse Reactions: Allergies Allergy/AdvReac Type Severity Reaction Status Date / Time methylphenidate AdvReac Rash Verified 04/25/20 16:12 Penicillins AdvReac Rash Verified 04/25/20 16:12 pramipexole AdvReac Rash Verified 04/25/20 16:12 simvastatin AdvReac Rash Verified 04/25/20 16:12 - Social History Does the pt smoke?: No Smoking Status: Never smoker Does the pt drink ETOH?: Yes Does the pt have substance abuse?: No - Immunizations Immunizations are current?: Yes - POLST Patient has POLST: No PD ED PE NORMAL - General General: Alert and oriented X 3, No acute distress, Well developed/nourished - Cardiac Cardiac: RRR, No murmur - Respiratory Respiratory: No respiratory distress - Abdomen Abdomen: Normal bowel sounds, Soft, Non tender - Male Male : Other (Bilateral testes are descended. Positive cremasteric bilaterally no swelling or erythema. No penile discharge. No inguinal or groin lymphadenopathy. ) - Back Back: No CVA TTP, No spinal TTP - Derm Derm: Normal color, Warm and dry Results - Vitals Vitals: Vital Signs - 24 hr 04/25/20 16:08 Temperature 37.3 C Heart Rate 56 L Respiratory 18 Rate Blood Pressure 143/50 H O2 Saturation 98 Oxygen O2 Source Room air - Labs Labs: Laboratory Tests 04/25/20 04/25/20 16:58 16:58 Sodium 138 Potassium 3.5 Chloride 98 L Carbon Dioxide 29 Anion Gap 11.0 BUN 52 H Creatinine 3.9 H Estimated GFR (MDRD) 16 L Glucose 158 H Calcium 8.5 Total Bilirubin 0.6 AST 29 ALT 28 Alkaline Phosphatase 92 Total Protein 6.0 L Albumin 3.9 Globulin 2.1 Albumin/Globulin Ratio 1.9 Lipase 26 Urine Color YELLOW Urine Clarity CLEAR Urine pH 5.5 Ur Specific [place] 1.020 Urine Protein 30 H Urine Glucose (UA) NEGATIVE Urine Ketones NEGATIVE Urine Occult Blood NEGATIVE Urine Nitrite NEGATIVE Urine Bilirubin NEGATIVE Urine Urobilinogen 0.2 (NORMAL) Ur Leukocyte Esterase NEGATIVE Urine RBC None Seen Urine WBC 0-3 Ur Squamous Epith Cells NONE SEEN Urine Bacteria None Seen Urine Casts 6-10 Hyaline Casts Ur Microscopic Review INDICATED Urine Culture Comments NOT INDICATED - Rads (name of study) Test US Radiology: Final report received (Findings consistent with left greater than right epididymitis) PD MEDICAL DECISION MAKING - ED course Complexity details: reviewed results, re-evaluated patient, d/w patient ED course: 59-year-old male here with intermittent left testicular pain that is been getting progressively worse for 1 month. He does have a remote history of epididymitis more than about 30 years ago. - His urine shows no signs of infection. This gentleman is not sexually active. He does have a known history of end-stage renal disease on 3 times weekly dialysis ( schedule). - US showed an area of increased vascualrity in left epididymis Consistent with epididymitis. Patient will be given ceftriaxone here in the emergency depar tment and discharged with Levaquin dosed for his renal dialysis. (hand written rx given) - advised close f/u with his pcp and emergent return precautions discussed - Departure - Departure Disposition: 01 Home, Self Care Clinical Impression: Epididymitis Condition: Stable Instructions: ED Epididymitis Follow-Up: [facility] MD [Primary Care Provider] - Within 1 week Comments: Gianluca the ultrasound shows that you have epididymitis on your left testicle. We have given you your first injection of antibiotics here in the emergency department. You are to take Levaquin every day after your dialysis treatment for a total of 5 doses Return here if the testicular pain does not improve, you develop fevers or are unable to urinate.
[2020-04-25 17:06] LABS: BILIRUBIN,URINE NEGATIVE (NEGATIVE); GLUCOSE, URINE (UA) NEGATIVE (NEGATIVE); KETONES,URINE (UA) NEGATIVE (NEGATIVE); LEUKOCYTE ESTERASE, URINE NEGATIVE (NEGATIVE); NITRITE,URINE NEGATIVE (NEGATIVE); OCCULT BLOOD,URINE NEGATIVE (NEGATIVE); PH,URINE 5.5 PH (5.0-7.5); PROTEIN,URINE 30 mg/dL (NEGATIVE); UROBILINOGEN,URINE 0.2 (NORMAL) E.U./dL (NORMAL)
[2020-04-25 17:10] LABS: CLARITY,URINE CLEAR (CLEAR)
[2020-04-25 17:17] LABS: BACTERIA,URINE None Seen /HPF (None Seen); CASTS, URINE 6-10 Hyaline Casts /LPF; RBC,URINE None Seen /HPF (0-5); SQUAMOUS EPITHELIAL CELL,UR NONE SEEN (<= Few)
[2020-04-25 17:27] LABS: ALBUMIN 3.9 g/dL (3.2-5.5); ALBUMIN/GLOBULIN RATIO 1.9 (1.0-2.2); BILIRUBIN,TOTAL 0.6 mg/dL (0.2-1.0); CALCIUM 8.5 mg/dL (8.5-10.3); CREATININE 3.9 mg/dL (0.6-1.2)
[2020-04-25] MEDS ORDERED: cefTRIAXone 250 MG VIAL IM STA (19:12)
[2020-04-25] MEDS ORDERED: LIDOCAINE 1% 2 ML VIAL MC ONE (19:12)
--- NOTE | 2020-04-25 19:20 | Ultrasound Report ---
PROCEDURE: Testicle w/Doppler INDICATIONS: left testicular exam TECHNIQUE: Real-time scanning was performed of the scrotum and testicles, with image documentation. Color and p ulse Doppler interrogation was performed of both testicles. COMPARISON: None. FINDINGS: Right: Testicle is normal in size at 4.1 x 2.1 x 3.1 cm, and homogenous in echotexture. Epididymis is normal in overall size and morphology. No varicoceles. Trace hydrocele. Overlying scrotal skin is normal in thickness. Incidental note of appendix testes. Left: Testicle is normal in size at 4.4 x 2.5 x 2.7 cm, and homogeneous in echotexture. Epididymis is normal in overall size and morphology. No varicoceles. Trace hydrocele. Overlying scrotal skin i s normal in thickness. Incidental 5 mm left epididymal head cyst. Doppler: Color and pulse Doppler demonstrate increased vascularity of the bilateral epididymis. Find ings are more pronounced on the left. There is presence of arterial flow in both testicles. IMPRESSION: 1. Findings compatible with left greater than right epididymitis. 2. Normal sonographic appearance of the bilateral testicles. 3. Trace bilateral hydroceles, likely reactive. Preliminary findings were reported to Dr. Salinas at 1815 hours Reviewed by: Dilip Daniels MD on 04/25/2020 7:18 PM PDT Approved by: Dilip Daniels MD on 04/25/2020 7:18 PM PDT Station ID: [id number]
[2020-04-25 19:41] VITALS: BP 138/55
== END 2020-04-25 19:40 | disposition home or self-care (01) ==
LOC: ED 16:03
DX: N45.1 Epididymitis (principal); N50.3 Cyst of epididymis; N43.3 Hydrocele, unspecified; I12.0 Hypertensive chronic kidney disease with stage 5 chronic kidney disease or end stage renal disease; E10.22 Type 1 diabetes mellitus with diabetic chronic kidney disease; N18.6 End stage renal disease; Z99.2 Dependence on renal dialysis; E10.42 Type 1 diabetes mellitus with diabetic polyneuropathy; Z79.82 Long term (current) use of aspirin
CPT/HCPCS: 36415; 76870; 80053; 81001; 81003; 83690; 87086; 93975; 96372; 99284

== ENCOUNTER 2020-12-05 14:39 | Emergency (ER) | payer MEDICARE ==
--- NOTE | 2020-12-05 15:44 | ED Physician Documentation ---
History of Present Illness - Stated complaint Stated Complaint: FOOT BLISTER/DIABETIC - Chief complaint Chief Complaint: Ext Problem - Additonal information Additional information: 60-year-old male who is a diabetic on dialysis 3 times a week presents to the emergency department for evaluation of a blister that he noted on his left great toe this morning. He reports doing daily foot and wound checks and did not have this yesterday morning or evening. He denies any new shoes or socks though he does wear slippers to bed at night. Review of Systems Constitutional: reports: Reviewed and negative Ears: reports: Reviewed and negative Throat: reports: Reviewed and negative Cardiac: reports: Reviewed and negative Respiratory: reports: Reviewed and negative GI: reports: Reviewed and negative : reports: Reviewed and negative Skin: reports: Lesions (blisters dorsum left great toe), Reviewed and negative Musculoskeletal: reports: Reviewed and negative Neurologic: reports: Reviewed and negative PD PAST MEDICAL HISTORY - Past Medical History Cardiovascular: Hypertension, High cholesterol, Coronary artery disease Respiratory: None Neuro: Peripheral neuropathy Endocrine/Autoimmune: Type 1 diabetes GI: None : Other HEENT: None Psych: None Derm: None - Past Surgical History Past Surgical History: Yes Cardiovascular: CABG - Present Medications Home Medications: Ambulatory Orders Medication Instructions Recorded Confirmed Aspirin Chewable [St Franky 81 mg PO DAILY 05/02/19 05/02/19 Aspirin] Furosemide 40 mg PO BID 05/02/19 05/02/19 Glucagon,Human Recombinant 1 mg IJ PRN PRN 05/02/19 05/02/19 [Glucagon Emergency Kit] Insulin Lispro [Humalog] 1 unit SQ PRN PRN 05/02/19 05/02/19 Levothyroxine [Synthroid] 125 mcg PO DAILY 05/02/19 05/02/19 Metoprolol Do/Hydrochlorothiaz 25 mg PO DAILY 05/02/19 05/02/19 [Metoprolol ER-Hctz 25-12.5 mg] Nitroglycerin 0.4 mg SL PRN PRN 05/02/19 05/02/19 Omeprazole Magnesium 20 mg PO DAILY 05/02/19 05/02/19 Pravastatin [Pravachol] 40 mg PO DAILY 05/02/19 05/02/19 Prazosin [Minipress] 1 mg PO BID 05/02/19 05/02/19 Sildenafil Citrate [Sildenafil] 50 mg PO PRN PRN 05/02/19 05/02/19 amLODIPine [Norvasc] 10 mg PO DAILY 05/02/19 05/02/19 buPROPion HCl [Bupropion HCl ER] 150 mg PO DAILY 05/02/19 05/02/19 modafiniL [Modafinil] 300 mg PO DAILY 05/02/19 05/02/19 Ondansetron Odt [Zofran] 4 mg TL Q6H PRN #10 tablet 05/31/19 Folic Acid/Vit B Complex and C 0.8 mg PO DAILY 04/25/20 04/25/20 [Nephro-Delmi Tablet] Lisinopril [Zestril] 20 mg PO BID 04/25/20 04/25/20 - Allergies Allergies/Adverse Reactions: Allergies Allergy/AdvReac Type Severity Reaction Status Date / Time methylphenidate AdvReac Rash Verified 12/05/20 14:44 Penicillins AdvReac Rash Verified 12/05/20 14:44 pramipexole AdvReac Rash Verified 12/05/20 14:44 simvastatin AdvReac Rash Verified 12/05/20 14:44 - Social History Does the pt smoke?: No Smoking Status: Never smoker Does the pt drink ETOH?: Yes Does the pt have substance abuse?: No - Immunizations Immunizations are current?: Yes - POLST Patient has POLST: No PD ED PE EXPANDED - General General: Alert, No acute distress - Extremities Extremities: Left arm (Left upper arm with AV fistula. Positive bruit and thrill), Left toe(s) (Left great toe with a blister on the dorsum just over MCP. No surrounding erythema. Scant amount of serous drainage. Normal gait on foot and toe.) Results - Vitals Vitals: Vital Signs - 24 hr 12/05/20 14:45 Temperature 36.6 C Heart Rate 59 L Respiratory 16 Rate Blood Pressure 160/57 H O2 Saturation 98 Oxygen O2 Source Room air PD MEDICAL DECISION MAKING - ED course Complexity details: considered differential, d/w patient ED course: 60-year-old male who is a diabetic presents to the emergency department for evaluation of a blister on the dorsum of his left great toe. He does daily foot checks and noticed it just this morning. The blister does not have any surrounding erythema or purulent drainage. This time it is quite early. Recommend routine wound care with daily warm salt water soaks and application of antibiotic ointment. Patient is advised to avoid wearing socks or close toed shoes to prevent any further friction from occurring. He was given a postop shoe. Emergent return precautions discussed for concerns of infection. pt to f/u with pcp in 7-10 days for recheck Departure - Departure Disposition: 01 Home, Self Care Clinical Impression: Toe blister without infection Qualifiers: Encounter type: initial encounter Laterality: left Qualified Code(s): S90.425A - Blister (nonthermal), left lesser toe(s), initial encounter Condition: Stable Record reviewed to determine appropriate education?: Yes Follow-Up: SOUTH CONNELL MD [Primary Care Provider] - Comments: Gianluca you were seen today for blisters on your left great toe. Right now they are simply blisters and do not show signs of infection however since you are a diabetic you are at high risk for these not to heal well and to develop infections. It is okay to shower normally. Once a day I would like you to soak your great toe in warm Epson salt solution. After shower and soaking the toe please apply any antibiotic ointment such as Neosporin or bacitracin to the toe a nonstick bandage and apply gauze. It is important that you avoid wearing socks or shoes to prevent any further friction from occurring. Please schedule an appointment with your primary doctor for follow-up in 7 to 10 days. If you have any concerns of infection such as redness, milky drainage, fevers red streaking or increased pain between now and then please return to the ER immediately for a second look
[2020-12-05 16:05] VITALS: BP 149/67
== END 2020-12-05 16:13 | disposition home or self-care (01) ==
LOC: ED 14:39
DX: S90.422A Blister (nonthermal), left great toe, initial encounter (principal); X58.XXXA Exposure to other specified factors, initial encounter; E10.42 Type 1 diabetes mellitus with diabetic polyneuropathy; Z79.4 Long term (current) use of insulin; Z99.2 Dependence on renal dialysis; I10 Essential (primary) hypertension; Z95.1 Presence of aortocoronary bypass graft
CPT/HCPCS: 99282; 99283

== ENCOUNTER 2020-12-28 13:22 | Day surgery (SDC) | payer MEDICARE ==
[2020-12-28] MEDS ORDERED: LACTATED RINGERS 1,000 ML IV ONE ×2 (13:25→15:56)
--- NOTE | 2020-12-28 14:31 | ANESTHESIA ---
Pre-Anesthesia VS, & Labs - Diagnosis colonoscopy - Procedure history of colon polyps Vital Signs: Temp Pulse Resp BP Pulse Ox 36 C L 84 16 158/64 H 97 12/28/20 13:28 12/28/20 13:28 12/28/20 13:28 12/28/20 13:28 12/28/20 13:28 Height: 5 ft 9 in Weight (kg): 76 kg Body Mass Index: 24.7 BMI Classification: Healthy weight - NPO Last Fluid Intake: 0800 clear liquids - Lab Results Current Lab Results: Laboratory Tests 12/28/20 13:41: POC Whole Bld Glucose 148 H Home Medications and Allergies Aspirin Chewable [St Franky Aspirin] 81 mg PO DAILY 05/02/19 Furosemide 40 mg PO BID 05/02/19 Glucagon,Human Recombinant [Glucagon Emergency Kit] 1 mg IJ PRN PRN 05/02/19 Insulin Lispro [Humalog] 1 unit SQ PRN PRN 05/02/19 Levothyroxine [Synthroid] 125 mcg PO DAILY 05/02/19 Metoprolol Do/Hydrochlorothiaz [Metoprolol ER-Hctz 25-12.5 mg] 25 mg PO DAILY 05/02/19 Nitroglycerin 0.4 mg SL PRN PRN 05/02/19 Omeprazole Magnesium 20 mg PO DAILY 05/02/19 Pravastatin [Pravachol] 40 mg PO DAILY 05/02/19 Prazosin [Minipress] 1 mg PO BID 05/02/19 Sildenafil Citrate [Sildenafil] 50 mg PO PRN PRN 05/02/19 amLODIPine [Norvasc] 10 mg PO DAILY 05/02/19 buPROPion HCl [Bupropion HCl ER] 150 mg PO DAILY 05/02/19 modafiniL [Modafinil] 300 mg PO DAILY 05/02/19 Folic Acid/Vit B Complex and C [Nephro-Delmi Tablet] 0.8 mg PO DAILY 04/25/20 Lisinopril [Zestril] 20 mg PO BID 04/25/20 Allergies/Adverse Reactions: Allergies Allergy/AdvReac Type Severity Reaction Status Date / Time methylphenidate AdvReac Rash Verified 12/27/20 13:59 Penicillins AdvReac Rash Verified 12/27/20 13:59 pramipexole AdvReac Rash Verified 12/27/20 13:59 simvastatin AdvReac Rash Verified 12/27/20 13:59 Anes History & Medical History - Anesthetic History Anesthesia Complications: reports: No previous complications - Medical History Cardiovascular: reports: Hypertension, High cholesterol, Coronary artery disease Pulmonary: reports: Sleep apnea, CPAP use Gastrointestinal: reports: None Urinary: reports: Dialysis (last dialysis 12/27/20) Neuro: reports: Peripheral neuropathy Musculoskeletal: reports: Osteoarthritis Endocrine/Autoimmune: reports: Type 1 diabetes Blood Disorders: reports: None Skin: reports: None Smoking Status: Never smoker Psychosocial: reports: Depression History of Cancer?: No Other Past Medical History: AV fistula in left arm - Surgical History Eyes Ears Nose Throat (EENT): reports: Cataracts Cardiothoracic: reports: CABG, Coronary stent Orthopedic: reports: Carpal Tunnel surgery Exam General: Alert, Oriented x3, Cooperative, No acute distress Dental: WNL Mouth Openin Fingerbreadth Neck Mobility: Normal Mallampati classification: III Thyromental Distance: 4-6 cm Respiratory: Lungs clear, Normal breath sounds, No respiratory distress, No accessory muscle use Cardiovascular: Regular rate, Normal S1, Normal S2, No murmurs Mental/Cognitive Status: Alert/Oriented X3, Normal for patient Plan Anesthesia Type: General Consent for Procedure(s) Verified and Reviewed: Yes Code Status: Attempt Resuscitation ASA classification: 4-Incapacitating disease Is this case an emergency?: No
[2020-12-28 15:06] LABS: CALCIUM 8.8 mg/dL (8.5-10.3); CREATININE 3.1 mg/dL (0.6-1.2); POTASSIUM 3.6 mmol/L (3.5-5.0)
[2020-12-28] MEDS ORDERED: PROPOFOL 200 MG/20 ML VIAL IVP ONE ×2 (15:12→15:40)
[2020-12-28 16:00] VITALS: BP 141/60
--- NOTE | 2020-12-28 17:16 | ANESTHESIA POST OP EVALUATION ---
Anesthesia Post Eval - Post Anesthesia Eval Vitals: Last Vital Signs Temp 36.7 C 12/28/20 15:52 Pulse 58 L 12/28/20 15:52 Resp 16 12/28/20 15:52 BP 141/60 H 12/28/20 15:52 Pulse Ox 97 12/28/20 15:52 CV Function Including HR & BP: positive: Stable Pain Control: positive: Satisfactory Nausea & Vomiting: positive: Negative Mental Status: positive: Baseline Respiratory Status: Airway Patent Hydration Status: Satisfactory Anesthesia Complications: positive: None
== END 2020-12-28 13:23 | disposition home or self-care (01) ==
LOC: SDS 13:22
PROVIDERS: ATTEND Surgery
PROC: 0DBN8ZZ Excision of Sigmoid Colon, Via Natural or Artificial Opening Endoscopic (ICD-10-PCS; principal; 2020-12-28 14:30)
DX: Z12.11 Encounter for screening for malignant neoplasm of colon (principal); D12.5 Benign neoplasm of sigmoid colon; K64.8 Other hemorrhoids; Z80.0 Family history of malignant neoplasm of digestive organs; E10.22 Type 1 diabetes mellitus with diabetic chronic kidney disease; I12.9 Hypertensive chronic kidney disease with stage 1 through stage 4 chronic kidney disease, or unspecified chronic kidney disease; N18.9 Chronic kidney disease, unspecified; Z79.82 Long term (current) use of aspirin; G47.33 Obstructive sleep apnea (adult) (pediatric)
CPT/HCPCS: 36415; 45385; 80048; J7120

== ENCOUNTER 2021-03-05 07:30 | Outpatient (CLI) | payer MEDICARE ==
[2021-03-05 15:09] LABS: BASOPHILS % (AUTO) 0.6 %; EOSINOPHILS # (AUTO) 0.2 10^3/uL (0.0-0.7); EOSINOPHILS % (AUTO) 2.8 %; HCT - HEMATOCRIT 33.4 % (42.0-52.0); HGB - HEMOGLOBIN 10.6 g/dL (14.0-18.0); LYMPHOCYTES # (AUTO) 0.8 10^3/uL (1.5-3.5); LYMPHOCYTES % (AUTO) 11.6 %; MEAN CORPUSCULAR HEMOGLOBIN 30.8 pg (27.0-31.0); MEAN CORPUSCULAR HGB CONC 31.7 g/dL (32.0-36.0); MEAN CORPUSCULAR VOLUME 97.1 fL (80.0-94.0); MEAN PLATELET VOLUME 10.3 fL (7.4-11.4); MONOCYTES # (AUTO) 0.6 10^3/uL (0.0-1.0); NEUTROPHILS % (AUTO) 75.3 %; PLT - PLATELET COUNT 235 10^3/uL (130-450); RED BLOOD COUNT 3.44 10^6/uL (4.70-6.10); WHITE BLOOD COUNT 6.7 x10^3/uL (4.8-10.8)
[2021-03-05 15:27] LABS: BILIRUBIN,URINE NEGATIVE (NEGATIVE); GLUCOSE, URINE (UA) NEGATIVE (NEGATIVE); KETONES,URINE (UA) NEGATIVE (NEGATIVE); LEUKOCYTE ESTERASE, URINE NEGATIVE (NEGATIVE); NITRITE,URINE NEGATIVE (NEGATIVE); OCCULT BLOOD,URINE SMALL (NEGATIVE); PH,URINE 6.5 PH (5.0-7.5); PROTEIN,URINE NEGATIVE (NEGATIVE); UROBILINOGEN,URINE 0.2 (NORMAL) E.U./dL (NORMAL)
[2021-03-05 15:28] LABS: CLARITY,URINE CLEAR (CLEAR)
[2021-03-05 15:30] LABS: ALBUMIN 3.6 g/dL (3.2-5.5); ALBUMIN/GLOBULIN RATIO 1.5 (1.0-2.2); BILIRUBIN,TOTAL 0.6 mg/dL (0.2-1.0); CALCIUM 8.9 mg/dL (8.5-10.3); CREATININE 1.5 mg/dL (0.6-1.2); MAGNESIUM 1.9 mg/dL (1.7-2.8); PHOSPHORUS 3.5 mg/dL (2.5-4.6); POTASSIUM 4.1 mmol/L (3.5-5.0)
[2021-03-05 15:32] LABS: CREATININE,URINE 82.6 mg/dL; PROTEIN/CREATININE RATIO,URINE 0.4 (<=0.2)
[2021-03-05 15:45] LABS: BACTERIA,URINE Rare /HPF (None Seen); SQUAMOUS EPITHELIAL CELL,UR NONE SEEN (<= Few); WBC,URINE 0-3 /HPF (0-3)
== END 2021-03-05 07:31 | disposition home or self-care (01) ==
LOC: LAB.S 07:30
PROVIDERS: ATTEND Internal Medicine
DX: T86.90 Unspecified complication of unspecified transplanted organ and tissue (principal); Z94.0 Kidney transplant status; Z48.298 Encounter for aftercare following other organ transplant; E83.40 Disorders of magnesium metabolism, unspecified; N39.0 Urinary tract infection, site not specified
CPT/HCPCS: 36415; 80053; 80197; 81001; 82570; 83735; 84100; 84156; 85025; 87086

== ENCOUNTER 2021-03-12 09:05 | Outpatient (CLI) | payer MEDICARE ==
[2021-03-12 15:38] LABS: BASOPHILS % (AUTO) 0.6 %; EOSINOPHILS # (AUTO) 0.1 10^3/uL (0.0-0.7); EOSINOPHILS % (AUTO) 1.6 %; HCT - HEMATOCRIT 34.4 % (42.0-52.0); HGB - HEMOGLOBIN 11.1 g/dL (14.0-18.0); LYMPHOCYTES # (AUTO) 0.6 10^3/uL (1.5-3.5); MEAN CORPUSCULAR HEMOGLOBIN 31.5 pg (27.0-31.0); MEAN CORPUSCULAR HGB CONC 32.3 g/dL (32.0-36.0); MEAN CORPUSCULAR VOLUME 97.7 fL (80.0-94.0); MEAN PLATELET VOLUME 10.3 fL (7.4-11.4); MONOCYTES # (AUTO) 0.6 10^3/uL (0.0-1.0); MONOCYTES % (AUTO) 11.2 %; NEUTROPHILS # (AUTO) 3.7 10^3/uL (1.5-6.6); NEUTROPHILS % (AUTO) 73.8 %; PLT - PLATELET COUNT 236 10^3/uL (130-450); RED BLOOD COUNT 3.52 10^6/uL (4.70-6.10); RED CELL DISTRIBUTION WIDTH 16.8 % (12.0-15.0); WHITE BLOOD COUNT 5.1 x10^3/uL (4.8-10.8)
[2021-03-12 15:46] LABS: BILIRUBIN,URINE NEGATIVE (NEGATIVE); GLUCOSE, URINE (UA) NEGATIVE (NEGATIVE); KETONES,URINE (UA) NEGATIVE (NEGATIVE); LEUKOCYTE ESTERASE, URINE NEGATIVE (NEGATIVE); NITRITE,URINE NEGATIVE (NEGATIVE); OCCULT BLOOD,URINE NEGATIVE (NEGATIVE); PH,URINE 5.5 PH (5.0-7.5); PROTEIN,URINE NEGATIVE (NEGATIVE); UROBILINOGEN,URINE 0.2 (NORMAL) E.U./dL (NORMAL)
[2021-03-12 15:48] LABS: CLARITY,URINE CLEAR (CLEAR)
[2021-03-12 15:53] LABS: ALBUMIN 3.9 g/dL (3.2-5.5); ALBUMIN/GLOBULIN RATIO 1.5 (1.0-2.2); BILIRUBIN,TOTAL 0.4 mg/dL (0.2-1.0); CALCIUM 9.2 mg/dL (8.5-10.3); CREATININE 1.5 mg/dL (0.6-1.2); MAGNESIUM 1.8 mg/dL (1.7-2.8); PHOSPHORUS 3.9 mg/dL (2.5-4.6); POTASSIUM 4.1 mmol/L (3.5-5.0); TOTAL PROTEIN 6.5 g/dL (6.7-8.2)
[2021-03-12 15:55] LABS: CREATININE,URINE 125.3 mg/dL; PROTEIN/CREATININE RATIO,URINE 0.2 (<=0.2)
== END 2021-03-12 09:06 | disposition home or self-care (01) ==
LOC: LAB.S 09:05
PROVIDERS: ATTEND Internal Medicine
DX: Z94.0 Kidney transplant status (principal); Z48.298 Encounter for aftercare following other organ transplant; T86.90 Unspecified complication of unspecified transplanted organ and tissue; N39.0 Urinary tract infection, site not specified
CPT/HCPCS: 36415; 80053; 80197; 81001; 81003; 82570; 83735; 84100; 84156; 85025; 87086

== ENCOUNTER 2021-03-15 08:15 | Outpatient (CLI) | payer MEDICARE ==
[2021-03-15 15:14] LABS: BASOPHILS % (AUTO) 0.8 %; EOSINOPHILS # (AUTO) 0.1 10^3/uL (0.0-0.7); EOSINOPHILS % (AUTO) 1.7 %; HCT - HEMATOCRIT 32.6 % (42.0-52.0); LYMPHOCYTES # (AUTO) 0.7 10^3/uL (1.5-3.5); LYMPHOCYTES % (AUTO) 12.3 %; MEAN CORPUSCULAR HEMOGLOBIN 32.8 pg (27.0-31.0); MEAN CORPUSCULAR HGB CONC 33.7 g/dL (32.0-36.0); MEAN CORPUSCULAR VOLUME 97.3 fL (80.0-94.0); MEAN PLATELET VOLUME 10.4 fL (7.4-11.4); MONOCYTES # (AUTO) 0.6 10^3/uL (0.0-1.0); MONOCYTES % (AUTO) 11.9 %; NEUTROPHILS # (AUTO) 3.8 10^3/uL (1.5-6.6); NEUTROPHILS % (AUTO) 72.4 %; PLT - PLATELET COUNT 243 10^3/uL (130-450); RED BLOOD COUNT 3.35 10^6/uL (4.70-6.10); RED CELL DISTRIBUTION WIDTH 16.4 % (12.0-15.0); WHITE BLOOD COUNT 5.3 x10^3/uL (4.8-10.8)
[2021-03-15 15:24] LABS: ALBUMIN 4.2 g/dL (3.2-5.5); ALBUMIN/GLOBULIN RATIO 1.8 (1.0-2.2); BILIRUBIN,TOTAL 0.6 mg/dL (0.2-1.0); CREATININE 1.4 mg/dL (0.6-1.2); MAGNESIUM 1.9 mg/dL (1.7-2.8); PHOSPHORUS 3.4 mg/dL (2.5-4.6); POTASSIUM 4.1 mmol/L (3.5-5.0); TOTAL PROTEIN 6.5 g/dL (6.7-8.2)
[2021-03-15 15:46] LABS: BILIRUBIN,URINE NEGATIVE (NEGATIVE); GLUCOSE, URINE (UA) NEGATIVE (NEGATIVE); KETONES,URINE (UA) NEGATIVE (NEGATIVE); LEUKOCYTE ESTERASE, URINE NEGATIVE (NEGATIVE); NITRITE,URINE NEGATIVE (NEGATIVE); OCCULT BLOOD,URINE NEGATIVE (NEGATIVE); PH,URINE 6.5 PH (5.0-7.5); PROTEIN,URINE NEGATIVE (NEGATIVE); UROBILINOGEN,URINE 0.2 (NORMAL) E.U./dL (NORMAL)
[2021-03-15 15:53] LABS: BACTERIA,URINE None Seen /HPF (None Seen); CLARITY,URINE CLEAR (CLEAR); RBC,URINE 0-5 /HPF (0-5); SQUAMOUS EPITHELIAL CELL,UR RARE Squamous (<= Few); WBC,URINE 0-3 /HPF (0-3)
[2021-03-15 15:57] LABS: CREATININE,URINE 79.3 mg/dL; PROTEIN/CREATININE RATIO,URINE 0.3 (<=0.2)
== END 2021-03-15 08:16 | disposition home or self-care (01) ==
LOC: LAB.S 08:15
PROVIDERS: ATTEND Internal Medicine
DX: Z94.0 Kidney transplant status (principal); Z48.298 Encounter for aftercare following other organ transplant; T86.90 Unspecified complication of unspecified transplanted organ and tissue; N39.0 Urinary tract infection, site not specified
CPT/HCPCS: 36415; 80053; 80197; 81001; 82570; 83735; 84100; 84156; 85025; 87086

== ENCOUNTER 2021-03-21 07:41 | Outpatient (CLI) | payer MEDICARE ==
[2021-03-21 15:28] LABS: CREATININE,URINE 83.9 mg/dL; PROTEIN/CREATININE RATIO,URINE 0.2 (<=0.2)
[2021-03-21 15:43] LABS: BASOPHILS # (AUTO) 0.1 10^3/uL (0.0-0.1); EOSINOPHILS # (AUTO) 0.1 10^3/uL (0.0-0.7); EOSINOPHILS % (AUTO) 2.3 %; HCT - HEMATOCRIT 35.3 % (42.0-52.0); HGB - HEMOGLOBIN 11.4 g/dL (14.0-18.0); LYMPHOCYTES # (AUTO) 0.8 10^3/uL (1.5-3.5); LYMPHOCYTES % (AUTO) 14.6 %; MEAN CORPUSCULAR HEMOGLOBIN 32.2 pg (27.0-31.0); MEAN CORPUSCULAR HGB CONC 32.3 g/dL (32.0-36.0); MEAN CORPUSCULAR VOLUME 99.7 fL (80.0-94.0); MEAN PLATELET VOLUME 10.3 fL (7.4-11.4); MONOCYTES # (AUTO) 0.5 10^3/uL (0.0-1.0); MONOCYTES % (AUTO) 10.2 %; NEUTROPHILS # (AUTO) 3.7 10^3/uL (1.5-6.6); NEUTROPHILS % (AUTO) 70.7 %; PLT - PLATELET COUNT 267 10^3/uL (130-450); RED BLOOD COUNT 3.54 10^6/uL (4.70-6.10); RED CELL DISTRIBUTION WIDTH 17.3 % (12.0-15.0); WHITE BLOOD COUNT 5.2 x10^3/uL (4.8-10.8)
[2021-03-21 15:52] LABS: ALBUMIN 3.9 g/dL (3.2-5.5); ALBUMIN/GLOBULIN RATIO 1.6 (1.0-2.2); BILIRUBIN,TOTAL 0.5 mg/dL (0.2-1.0); CALCIUM 9.3 mg/dL (8.5-10.3); CREATININE 1.4 mg/dL (0.6-1.2); MAGNESIUM 1.9 mg/dL (1.7-2.8); PHOSPHORUS 3.5 mg/dL (2.5-4.6); POTASSIUM 3.7 mmol/L (3.5-5.0); TOTAL PROTEIN 6.3 g/dL (6.7-8.2)
[2021-03-21 16:06] LABS: BILIRUBIN,URINE NEGATIVE (NEGATIVE); GLUCOSE, URINE (UA) NEGATIVE (NEGATIVE); KETONES,URINE (UA) NEGATIVE (NEGATIVE); LEUKOCYTE ESTERASE, URINE NEGATIVE (NEGATIVE); NITRITE,URINE NEGATIVE (NEGATIVE); OCCULT BLOOD,URINE NEGATIVE (NEGATIVE); PH,URINE 6.5 PH (5.0-7.5); PROTEIN,URINE NEGATIVE (NEGATIVE); UROBILINOGEN,URINE 0.2 (NORMAL) E.U./dL (NORMAL)
[2021-03-21 16:10] LABS: CLARITY,URINE CLEAR (CLEAR)
== END 2021-03-21 07:42 | disposition home or self-care (01) ==
LOC: LAB.S 07:41
PROVIDERS: ATTEND Internal Medicine
DX: T86.90 Unspecified complication of unspecified transplanted organ and tissue (principal); N39.0 Urinary tract infection, site not specified; Z94.0 Kidney transplant status; Z48.298 Encounter for aftercare following other organ transplant
CPT/HCPCS: 36415; 80053; 80197; 81001; 81003; 82570; 83735; 84100; 84156; 85025; 87086

== ENCOUNTER 2021-03-26 07:49 | Outpatient (CLI) | payer MEDICARE ==
[2021-03-26 15:20] LABS: BASOPHILS # (AUTO) 0.1 10^3/uL (0.0-0.1); EOSINOPHILS # (AUTO) 0.1 10^3/uL (0.0-0.7); EOSINOPHILS % (AUTO) 1.5 %; HCT - HEMATOCRIT 36.9 % (42.0-52.0); HGB - HEMOGLOBIN 11.8 g/dL (14.0-18.0); LYMPHOCYTES # (AUTO) 0.7 10^3/uL (1.5-3.5); LYMPHOCYTES % (AUTO) 11.6 %; MEAN PLATELET VOLUME 10.4 fL (7.4-11.4); MONOCYTES # (AUTO) 0.7 10^3/uL (0.0-1.0); MONOCYTES % (AUTO) 10.9 %; NEUTROPHILS # (AUTO) 4.6 10^3/uL (1.5-6.6); NEUTROPHILS % (AUTO) 74.3 %; PLT - PLATELET COUNT 268 10^3/uL (130-450); RED BLOOD COUNT 3.69 10^6/uL (4.70-6.10); RED CELL DISTRIBUTION WIDTH 17.2 % (12.0-15.0); WHITE BLOOD COUNT 6.1 x10^3/uL (4.8-10.8)
[2021-03-26 15:22] LABS: BILIRUBIN,URINE NEGATIVE (NEGATIVE); GLUCOSE, URINE (UA) NEGATIVE (NEGATIVE); KETONES,URINE (UA) NEGATIVE (NEGATIVE); LEUKOCYTE ESTERASE, URINE NEGATIVE (NEGATIVE); NITRITE,URINE NEGATIVE (NEGATIVE); OCCULT BLOOD,URINE NEGATIVE (NEGATIVE); PROTEIN,URINE NEGATIVE (NEGATIVE); UROBILINOGEN,URINE 0.2 (NORMAL) E.U./dL (NORMAL)
[2021-03-26 15:24] LABS: CLARITY,URINE CLEAR (CLEAR)
[2021-03-26 15:27] LABS: ALBUMIN 4.1 g/dL (3.2-5.5); ALBUMIN/GLOBULIN RATIO 1.9 (1.0-2.2); BILIRUBIN,TOTAL 0.5 mg/dL (0.2-1.0); CALCIUM 9.1 mg/dL (8.5-10.3); CREATININE 1.4 mg/dL (0.6-1.2); PHOSPHORUS 3.7 mg/dL (2.5-4.6); POTASSIUM 4.1 mmol/L (3.5-5.0); TOTAL PROTEIN 6.3 g/dL (6.7-8.2)
[2021-03-26 15:39] LABS: CREATININE,URINE 128.8 mg/dL; PROTEIN/CREATININE RATIO,URINE 0.2 (<=0.2)
[2021-03-26 16:17] LABS: BACTERIA,URINE Rare /HPF (None Seen); RBC,URINE None Seen /HPF (0-5); SQUAMOUS EPITHELIAL CELL,UR RARE Squamous (<= Few); WBC,URINE 0-3 /HPF (0-3)
== END 2021-03-26 07:50 | disposition home or self-care (01) ==
LOC: LAB.S 07:49
PROVIDERS: ATTEND Internal Medicine
DX: Z48.298 Encounter for aftercare following other organ transplant (principal); Z94.0 Kidney transplant status; T86.90 Unspecified complication of unspecified transplanted organ and tissue; N39.0 Urinary tract infection, site not specified
CPT/HCPCS: 36415; 80053; 80197; 81001; 82570; 83735; 84100; 84156; 85025; 87086

== ENCOUNTER 2021-10-08 07:56 | Outpatient (CLI) | payer MEDICARE ==
[2021-10-08 14:39] LABS: BILIRUBIN,URINE NEGATIVE (NEGATIVE); GLUCOSE, URINE (UA) NEGATIVE (NEGATIVE); KETONES,URINE (UA) NEGATIVE (NEGATIVE); LEUKOCYTE ESTERASE, URINE NEGATIVE (NEGATIVE); NITRITE,URINE NEGATIVE (NEGATIVE); OCCULT BLOOD,URINE TRACE-INTA (NEGATIVE); PROTEIN,URINE NEGATIVE (NEGATIVE); UROBILINOGEN,URINE 0.2 (NORMAL) E.U./dL (NORMAL)
[2021-10-08 14:47] LABS: CLARITY,URINE CLEAR (CLEAR)
[2021-10-08 14:51] LABS: BASOPHILS % (AUTO) 0.6 %; EOSINOPHILS # (AUTO) 0.1 10^3/uL (0.0-0.7); EOSINOPHILS % (AUTO) 0.8 %; HGB - HEMOGLOBIN 12.3 g/dL (14.0-18.0); LYMPHOCYTES # (AUTO) 0.6 10^3/uL (1.5-3.5); LYMPHOCYTES % (AUTO) 9.9 %; MEAN CORPUSCULAR HEMOGLOBIN 31.4 pg (27.0-31.0); MEAN CORPUSCULAR HGB CONC 32.4 g/dL (32.0-36.0); MEAN CORPUSCULAR VOLUME 96.9 fL (80.0-94.0); MEAN PLATELET VOLUME 10.1 fL (7.4-11.4); MONOCYTES # (AUTO) 0.6 10^3/uL (0.0-1.0); MONOCYTES % (AUTO) 9.1 %; NEUTROPHILS # (AUTO) 5.1 10^3/uL (1.5-6.6); NEUTROPHILS % (AUTO) 79.1 %; PLT - PLATELET COUNT 240 10^3/uL (130-450); RED BLOOD COUNT 3.92 10^6/uL (4.70-6.10); RED CELL DISTRIBUTION WIDTH 13.1 % (12.0-15.0); WHITE BLOOD COUNT 6.5 x10^3/uL (4.8-10.8)
[2021-10-08 14:55] LABS: CALCIUM 9.5 mg/dL (8.5-10.3); CREATININE 1.5 mg/dL (0.6-1.2); MAGNESIUM 1.9 mg/dL (1.7-2.8); PHOSPHORUS 3.5 mg/dL (2.5-4.6); POTASSIUM 4.3 mmol/L (3.5-5.0)
[2021-10-08 14:58] LABS: CREATININE,URINE 223.8 mg/dL; PROTEIN/CREATININE RATIO,URINE 0.1 (<=0.2)
[2021-10-08 15:08] LABS: BACTERIA,URINE None Seen /HPF (None Seen); RBC,URINE 0-5 /HPF (0-5); SPERM,URINE PRESENT; SQUAMOUS EPITHELIAL CELL,UR NONE SEEN (<= Few); WBC,URINE 0-3 /HPF (0-3)
== END 2021-10-08 07:57 | disposition home or self-care (01) ==
LOC: LAB.S 07:56
PROVIDERS: ATTEND Internal Medicine Nephrology
DX: Z94.0 Kidney transplant status (principal)
CPT/HCPCS: 36415; 80069; 80197; 81001; 82570; 83735; 84156; 85025; 87086

== ENCOUNTER 2021-10-18 13:59 | Outpatient (CLI) | payer MEDICARE ==
[2021-10-18 20:39] LABS: BASOPHILS % (AUTO) 0.6 %; EOSINOPHILS % (AUTO) 0.4 %; HCT - HEMATOCRIT 40.5 % (42.0-52.0); HGB - HEMOGLOBIN 12.9 g/dL (14.0-18.0); LYMPHOCYTES # (AUTO) 0.5 10^3/uL (1.5-3.5); LYMPHOCYTES % (AUTO) 7.7 %; MEAN CORPUSCULAR HEMOGLOBIN 31.1 pg (27.0-31.0); MEAN CORPUSCULAR HGB CONC 31.9 g/dL (32.0-36.0); MEAN CORPUSCULAR VOLUME 97.6 fL (80.0-94.0); MEAN PLATELET VOLUME 10.4 fL (7.4-11.4); MONOCYTES # (AUTO) 0.4 10^3/uL (0.0-1.0); MONOCYTES % (AUTO) 5.9 %; NEUTROPHILS # (AUTO) 5.7 10^3/uL (1.5-6.6); NEUTROPHILS % (AUTO) 85.1 %; PLT - PLATELET COUNT 255 10^3/uL (130-450); RED BLOOD COUNT 4.15 10^6/uL (4.70-6.10); RED CELL DISTRIBUTION WIDTH 13.1 % (12.0-15.0); WHITE BLOOD COUNT 6.7 x10^3/uL (4.8-10.8)
[2021-10-18 21:02] LABS: ALBUMIN 4.1 g/dL (3.2-5.5); BILIRUBIN,DIRECT 0.1 mg/dL (0.1-0.5); BILIRUBIN,TOTAL 0.4 mg/dL (0.2-1.0); TOTAL PROTEIN 6.6 g/dL (6.7-8.2)
[2021-10-18 21:15] LABS: THYROID STIMULATING HORMONE 0.94 uIU/mL (0.34-5.60)
[2021-10-18 21:16] LABS: FREE T4 (FREE THYROXINE) 0.99 ng/dL (0.58-1.64)
[2021-10-18 21:21] LABS: FERRITIN 355.6 ng/mL (23.9-336.2)
== END 2021-10-18 14:00 | disposition home or self-care (01) ==
LOC: LAB.S 13:59
PROVIDERS: ATTEND Internal Medicine Nephrology
DX: Z94.0 Kidney transplant status (principal)
CPT/HCPCS: 36415; 80076; 81599; 82306; 82607; 82728; 82746; 83540; 83970; 84439; 84443; 84466; 85025; 87798; 87799

== ENCOUNTER 2023-08-15 23:21 | Outpatient (CLI) | payer MEDICARE | END 2023-08-15 23:22 | disposition critical access hospital (66) | LOC: EMS 23:21 | DX: R10.31 Right lower quadrant pain (principal); R11.10 Vomiting, unspecified; E11.65 Type 2 diabetes mellitus with hyperglycemia; Z79.4 Long term (current) use of insulin | CPT/HCPCS: A0425; A0427 ==

== ENCOUNTER 2023-08-15 23:50 | Inpatient (IN) | payer MEDICARE, OTHER ==
[2023-08-16 00:15] LABS: BASOPHILS % (AUTO) 0.4 %; EOSINOPHILS # (AUTO) 0.1 10^3/uL (0.0-0.7); EOSINOPHILS % (AUTO) 0.5 %; HCT - HEMATOCRIT 40.1 % (42.0-52.0); HGB - HEMOGLOBIN 13.3 g/dL (14.0-18.0); LYMPHOCYTES # (AUTO) 0.6 10^3/uL (1.5-3.5); LYMPHOCYTES % (AUTO) 5.5 %; MEAN CORPUSCULAR HEMOGLOBIN 30.7 pg (27.0-31.0); MEAN CORPUSCULAR HGB CONC 33.2 g/dL (32.0-36.0); MEAN CORPUSCULAR VOLUME 92.6 fL (80.0-94.0); MEAN PLATELET VOLUME 9.6 fL (7.4-11.4); MONOCYTES # (AUTO) 0.7 10^3/uL (0.0-1.0); MONOCYTES % (AUTO) 6.2 %; NEUTROPHILS # (AUTO) 9.5 10^3/uL (1.5-6.6); NEUTROPHILS % (AUTO) 87.1 %; PLT - PLATELET COUNT 223 10^3/uL (130-450); RED BLOOD COUNT 4.33 10^6/uL (4.70-6.10); RED CELL DISTRIBUTION WIDTH 12.8 % (12.0-15.0); WHITE BLOOD COUNT 10.9 x10^3/uL (4.8-10.8)
--- NOTE | 2023-08-16 00:22 | ED Physician Documentation ---
PD HPI ABD PAIN - Stated complaint Stated Complaint: RLQ PX - Chief complaint Chief Complaint: Abd Pain - History obtained from History obtained from: Patient - Additional information Additional information: BIBA. HPI from EMS, patient. Patient complains of sudden onset of abdominal pain, predominantly right lower quadrant, associate with nausea and vomiting. The pain came on at approximately 8 PM tonight while at home at rest. The pain waxes and wanes without any apparent exacerbating or ameliorating factors. The pain is gradually spread in an area of discomfort to involve the entire abdomen, but continues to be predominantly right-sided, mostly right lower quadrant. Denies history of similar symptoms. Patient's past medical history includes kidney transplant (02/03/2021), CABG, IDDM. Review of Systems Constitutional: denies: Fever, Chills, Sweats Cardiac: reports: Reviewed and negative Respiratory: reports: Reviewed and negative GI: reports: Abdominal Pain, Nausea, Vomiting. denies: Abdominal Swelling, Constipation, Diarrhea, Hematemesis, Bloody / black stool : denies: Dysuria, Frequency, Hematuria Musculoskeletal: reports: Reviewed and negative Neurologic: reports: Reviewed and negative PD PAST MEDICAL HISTORY - Past Medical History Past Medical History: Yes Cardiovascular: Hypertension, High cholesterol, Coronary artery disease Respiratory: Sleep apnea, CPAP use Neuro: Peripheral neuropathy Endocrine/Autoimmune: Type 1 diabetes GI: None : Dialysis HEENT: None Psych: None Musculoskeletal: Osteoarthritis Derm: None - Past Surgical History Past Surgical History: Yes Ortho: Carpal Tunnel surgery Cardiovascular: CABG, Coronary stent HEENT: Cataracts - Present Medications Home Medications: Ambulatory Orders Medication Instructions Recorded Confirmed Aspirin Chewable [St Franky 81 mg PO DAILY 05/02/19 08/16/23 Aspirin] Insulin Lispro [Humalog] 1 unit SQ PRN PRN 05/02/19 08/16/23 Levothyroxine [Synthroid] 125 mcg PO DAILY 05/02/19 08/16/23 Pravastatin [Pravachol] 40 mg PO DAILY 05/02/19 08/16/23 buPROPion HCL [Bupropion HCl ER] 150 mg PO DAILY 05/02/19 08/16/23 Famotidine [Acid Qa Reviewer] 20 mg PO DAILY 08/16/23 08/16/23 Ferrous Sulfate 325 mg PO DAILY 08/16/23 08/16/23 Gabapentin [Neurontin] 100 mg PO BID 08/16/23 08/16/23 Gabapentin [Neurontin] 300 mg PO QPM 08/16/23 08/16/23 Isosorbide Mononitrate ER [Imdur] 30 mg PO DAILY 08/16/23 08/16/23 Lisinopril [Zestril] 2.5 mg PO DAILY 08/16/23 08/16/23 Magnesium Oxide 400 mg PO BID 08/16/23 08/16/23 Multivit-Min/Iron Fum/Folic AC 1 each PO DAILY 08/16/23 08/16/23 [One-A-Day Women's Complete Tab] Mycophenolate Sodium [Myfortic] 180 mg PO BID 08/16/23 08/16/23 Tacrolimus [Prograf] 1 mg PO BID 08/16/23 08/16/23 Tamsulosin HCl [Flomax] 0.4 mg PO QPM 08/16/23 08/16/23 predniSONE [Deltasone] 5 mg PO DAILY 08/16/23 08/16/23 - Allergies Allergies/Adverse Reactions: Allergies Allergy/AdvReac Type Severity Reaction Status Date / Time methylphenidate AdvReac Rash Verified 08/15/23 23:59 Penicillins AdvReac Rash Verified 08/15/23 23:59 pramipexole AdvReac Rash Verified 08/15/23 23:59 simvastatin AdvReac Rash Verified 08/15/23 23:59 - Social History Does the pt smoke?: No Smoking Status: Never smoker Does the pt drink ETOH?: Yes Does the pt have substance abuse?: No - Immunizations Immunizations are current?: Yes - POLST Patient has POLST: No PD ED PE NORMAL - Vitals Vital signs reviewed: Yes - General General: Alert and oriented X 3, Well developed/nourished, Other (Mild to moderate painful distress at times during the H&P.) - Neck Neck: Supple, no meningeal sign - Cardiac Cardiac: RRR, No murmur - Respiratory Respiratory: No respiratory distress, Clear bilaterally PD ED PE EXPANDED - Abdomen Abdomen: Tender to palpation, Guarding, Periumbilical, RLQ, Other ((+) Rovsing's sign) Results - Vitals Vitals: Vital Signs - 24 hr 08/15/23 08/16/23 08/16/23 23:50 00:49 01:05 Temperature 36.7 C Heart Rate 67 70 65 Respiratory 18 17 16 Rate Blood Pressure 183/88 H 177/87 H 158/80 H O2 Saturation 98 100 94 08/16/23 08/16/23 08/16/23 02:28 03:17 03:28 Temperature 36.6 C 36.5 C Heart Rate 84 89 74 Respiratory 16 16 16 Rate Blood Pressure 166/70 H 160/73 H 160/73 H O2 Saturation 96 99 98 08/16/23 08/16/23 03:56 06:20 Temperature Heart Rate 74 87 Respiratory 14 16 Rate Blood Pressure 139/65 H 179/88 H O2 Saturation 95 96 Oxygen O2 Source Room air - EKG (time done) No standard instances EKG releavant findings:: EKG personally interpreted by author of this note. Relevant findings are: Rate: Rate (enter#) (68) Rhythm: NSR Britt: Normal Intervals: Normal CT QRS: Normal Ischemia: Normal ST segments - Labs Labs: Laboratory Tests 08/16/23 08/16/23 08/16/23 00:11 00:11 00:11 WBC 10.9 H RBC 4.33 L Hgb 13.3 L Hct 40.1 L MCV 92.6 MCH 30.7 MCHC 33.2 RDW 12.8 Plt Count 223 MPV 9.6 Neut # (Auto) 9.5 H Lymph # (Auto) 0.6 L [place] # (Auto) 0.7 Eos # (Auto) 0.1 Baso # (Auto) 0.0 Absolute Nucleated RBC 0.00 Nucleated RBC % 0.0 Sodium 135 Potassium 4.4 Chloride 99 L Carbon Dioxide 29 Anion Gap 7.0 BUN 31 H Creatinine 1.4 H Estimated GFR (MDRD) 51 L Glucose 270 H POC Whole Bld Glucose Calcium 9.5 Total Bilirubin 0.4 AST 20 ALT 21 Alkaline Phosphatase 59 Troponin I High Sens 6.9 Total Protein 6.6 Albumin 4.4 Globulin 2.2 Albumin/Globulin Ratio 2.0 Lipase < 10 L Urine Color Urine Clarity Urine pH Ur Specific Jud Urine Protein Urine Glucose (UA) Urine Ketones Urine Occult Blood Urine Nitrite Urine Bilirubin Urine Urobilinogen Ur Leukocyte Esterase Ur Microscopic Review Urine Culture Comments 08/16/23 08/16/23 06:25 06:25 WBC RBC Hgb Hct MCV MCH MCHC RDW Plt Count MPV Neut # (Auto) Lymph # (Auto) [place] # (Auto) Eos # (Auto) Baso # (Auto) Absolute Nucleated RBC Nucleated RBC % Sodium Potassium Chloride Carbon Dioxide Anion Gap BUN Creatinine Estimated GFR (MDRD) Glucose POC Whole Bld Glucose 294 H Calcium Total Bilirubin AST ALT Alkaline Phosphatase Troponin I High Sens Total Protein Albumin Globulin Albumin/Globulin Ratio Lipase Urine Color YELLOW Urine Clarity CLEAR Urine pH 7.5 Ur Specific Jud 1.015 Urine Protein TRACE Urine Glucose (UA) 500 H Urine Ketones 15 H Urine Occult Blood NEGATIVE Urine Nitrite NEGATIVE Urine Bilirubin NEGATIVE Urine Urobilinogen 0.2 (NORMAL) Ur Leukocyte Esterase NEGATIVE Ur Microscopic Review NOT INDICATED Urine Culture Comments NOT INDICATED - Rads (name of study) CT A/P Relevant Findings:: Prelim report reviewed, See rad report PD Medical Decision Making - ED course Complexity details: reviewed results, re-evaluated patient, considered differential, d/w patient ED course: Patient is given 1 mg Dilaudid IV as well as 4 mg IV Zofran. No concerning findings on CBC; white blood cell count is minimally elevated at 10.6. Hemoglobin 13.3. There are also no concerning findings on the ER abdominal panel, note is made of creatinine 1.4, which is patient's baseline creatinine. Hyperglycemia is noted with glucose of 294. A CT of the abdomen pelvis is interpreted by the radiologist as "dilated proximal and mid small bowel, consistent with mechanical obstruction. The exact transition point in etiology are not identified. Unremarkable appearance of the right iliac fossa renal transplant. Atrophic [place] kidneys, expected. Small gallstones are apparent. No bile duct obstruction." While the medications above did provide some degree of transient relief, the pain and nausea gradually returned requiring a repeat dose of the Dilaudid and Zofran. I discussed this case with Dr. Ocampo (on-call surgery for [facility]). He says he would be comfortable caring for this patient at [facility] provided the hospitalist also is comfortable managing his underlying medical problems (such as medications/dosing related to anti-rejection meds). Also contingent on accepting the patient to [facility] would be to discuss the case with the patient's rug repairer and transplant team at [facility]. I discussed this case with Dr. Garcia (rug repairer at [facility]) who then discussed the case with the kidney transplant specialist at [facility]. (Dr. Cervantes). Dr. Garcia says that at this time there is no indication for transfer to their facility and that patient is appropriate for inpatient treatment at [facility]. I d/w Dr. Stroud who accepts admission to hospitalist service at [facility]. Patient had recurrence of n/v late in ED stay and thus NGT placed to intermittent LWS Departure - Departure Disposition: 66 [facility] DC/Xfer Clinical Impression: Small bowel obstruction Condition: Stable Forms: PCP List
[2023-08-16 00:35] LABS: ALBUMIN 4.4 g/dL (3.2-5.5); ALKALINE PHOSPHATASE 59 IU/L (42-121); ALT ALANINE AMINOTRANSFERASE 21 IU/L (10-60); AST ASPARTATE AMINOTRANSFERASE 20 IU/L (10-42); BILIRUBIN,TOTAL 0.4 mg/dL (0.2-1.0); BUN - BLOOD UREA NITROGEN 31 mg/dL (6-20); CALCIUM 9.5 mg/dL (8.5-10.3); CARBON DIOXIDE - CO2 29 mmol/L (21-32); CHLORIDE 99 mmol/L (101-111); CREATININE 1.4 mg/dL (0.6-1.3); GFR - MDRD 51 (>89); GLUCOSE 270 mg/dL (74-104); POTASSIUM 4.4 mmol/L (3.5-4.5); SODIUM 135 mmol/L (135-145); TOTAL PROTEIN 6.6 g/dL (6.4-8.9)
[2023-08-16] MEDS ORDERED: HYDROmorphone 1 MG/ML CARPUJECT IVP STA ×2 (00:35→03:32)
[2023-08-16] MEDS ORDERED: ONDANSETRON 4 MG/2 ML VIAL IVP STA ×2 (00:35→03:32)
[2023-08-16 00:39] LABS: LIPASE < 10 U/L (11-82)
[2023-08-16] MEDS ORDERED: SODIUM CHLORIDE 0.9% 1,000 ML IV STA (03:19)
[2023-08-16 06:36] LABS: BILIRUBIN,URINE NEGATIVE (NEGATIVE); GLUCOSE, URINE (UA) 500 mg/dL (NEGATIVE); KETONES,URINE (UA) 15 mg/dL (NEGATIVE); LEUKOCYTE ESTERASE, URINE NEGATIVE (NEGATIVE); NITRITE,URINE NEGATIVE (NEGATIVE); OCCULT BLOOD,URINE NEGATIVE (NEGATIVE); PH,URINE 7.5 PH (5.0-7.5); PROTEIN,URINE TRACE mg/dL (NEGATIVE); UROBILINOGEN,URINE 0.2 (NORMAL) E.U./dL (NORMAL)
[2023-08-16 06:39] LABS: CLARITY,URINE CLEAR (CLEAR)
--- NOTE | 2023-08-16 07:38 | CONSULTATION NOTE ---
Surgery Consult - Consult Date Consult Date: 08/16/23 - Chief Complaint Chief Complaint: Nausea, vomiting, abdominal pain - Home Meds/Allergies Home Medications: Patient History Medication Instructions Recorded Confirmed Aspirin Chewable [St Franky 81 mg PO DAILY 05/02/19 08/16/23 Aspirin] Insulin Lispro [Humalog] 1 unit SQ PRN PRN 05/02/19 08/16/23 Levothyroxine [Synthroid] 125 mcg PO DAILY 05/02/19 08/16/23 Pravastatin [Pravachol] 40 mg PO DAILY 05/02/19 08/16/23 buPROPion HCL [Bupropion HCl ER] 150 mg PO DAILY 05/02/19 08/16/23 Famotidine [Acid Investment Banker] 20 mg PO DAILY 08/16/23 08/16/23 Ferrous Sulfate 325 mg PO DAILY 08/16/23 08/16/23 Gabapentin [Neurontin] 100 mg PO BID 08/16/23 08/16/23 Gabapentin [Neurontin] 300 mg PO QPM 08/16/23 08/16/23 Isosorbide Mononitrate ER [Imdur] 30 mg PO DAILY 08/16/23 08/16/23 Lisinopril [Zestril] 2.5 mg PO DAILY 08/16/23 08/16/23 Magnesium Oxide 400 mg PO BID 08/16/23 08/16/23 Multivit-Min/Iron Fum/Folic AC 1 each PO DAILY 08/16/23 08/16/23 [One-A-Day Women's Complete Tab] Mycophenolate Sodium [Myfortic] 180 mg PO BID 08/16/23 08/16/23 Tacrolimus [Prograf] 1 mg PO BID 08/16/23 08/16/23 Tamsulosin HCl [Flomax] 0.4 mg PO QPM 08/16/23 08/16/23 predniSONE [Deltasone] 5 mg PO DAILY 08/16/23 08/16/23 Allergies/Adverse Reactions: Allergies Allergy/AdvReac Type Severity Reaction Status Date / Time methylphenidate AdvReac Rash Verified 08/15/23 23:59 Penicillins AdvReac Rash Verified 08/15/23 23:59 pramipexole AdvReac Rash Verified 08/15/23 23:59 simvastatin AdvReac Rash Verified 11/03/23 23:59 - Vital Signs Vital Signs: Last Vital Signs Temp 97.7 F 08/16/23 03:28 Pulse 87 08/16/23 06:20 Resp 16 08/16/23 06:20 BP 179/88 H 08/16/23 06:20 Pulse Ox 96 08/16/23 06:20 O2 Flow Rate Intake & Output: Intake & Output 08/13/23 08/14/23 08/15/23 08/16/23 23:59 23:59 23:59 23:59 Intake Total 10 Output Total 250 Balance -240 - Lab Results Result Diagrams: 08/16/23 00:11 08/16/23 00:11 - Consultation Note Consultation Note: General Surgery Consultation Note Assessment: 1) Ileus vs SBO - no clinical, lab, or image evidence of ischemic bowel. 2) Renal transplant patient 3) Diabetes 4) CAD with history of CABG Recommendation: 1) Consult with nephrology and transplant team regarding recommendations for management of his renal transplant and renal function 2) NGT to LIS - this will be helpful to eliminate the nausea and vomiting and begin decompression of the stomach and small bowel 3) If patient is admitted to this facility, he should be admitted to the Medical Hospitalist Service and Surgery will follow 4) If admitted, a small bowel challenge study will be initiated today 5) Medical management of his diabetes, renal insufficiency, and renal transplant meds by ER until disposition determined 6) Surgery will follow if admitted <><><><><><><><><><> Reason for Consultation SBO vs Ileus Chief Complaint N/V, abdominal cramps HPI Saud is a 63 male whom I was asked to see by Dr. Holbrook (ED) who immediately after eating a duarte dinner at a restaurant last evening ([id number]) developed the acute onset of nausea, vomiting and abdominal pain. The pain is crampy and intermittent and persisted such that he came to the ED just before midnight. His abdominal symptoms have improved with IV analgesics in the ED. He continues to have nausea and vomiting despite the use of IV Zofran. Saud is followed by the transplant team at . He underwent a right iliac renal transplant several years ago and takes anti-rejection medication on a regular basis. He denies prior episodes of similar nausea or vomiting. Past Medical History IDDM CAD Osteoarthritis Peripheral neuropathy HTN Past Surgical History Cataracts Carpal tunnel CABG renal transplant 2020 Social History + ETOH; - Cig Current Medications See "Medication" section Allergies See "Allergy" section ROS Pertinent positives N/V; Abdominal cramping All other reviewed systems negative Physical Examination Vital Signs: See "Vital Signs" section BMI: 26 GENERAL APPEARANCE: Normal development, normal body habitus, [] grooming PSYCHIATRIC: AAO; Comfortable EYES: Pupils equal, round and reactive to light, sclera anicteric EARS, NOSE, MOUTH, THROAT: Hearing normal, Oral mucous membranes moist and without lesions; NECK: No crepitus, lymphadenopathy, or thyromegaly LUNGS: Clear to auscultation without wheezing; No use of accessory muscles to breathe CARDIOVASCULAR: Heart-NSR without murmurs; Palpable carotid arteries - no bruits; ABD: Soft, slight distension, no palpable tenderness in any quadrant; Right paramedian surgical scar well healed. No tenderness in right iliac fossa LYMPHATIC: Neck, Axillae, Groin no palpable adenopathy EXTREMITIES: No clubbing, cyanosis, infections SKIN: Anicteric; No rashes, lesions, Ulcerations Labs See "Labs" section Antibiotics: N/A VTEP: N/A SCD Imaging CT Abd/Pelvis: Small bowel distension without transition zone seen. No decompressed small bowel apparent on image study. No free fluid or bowel wall air; No swirl; Right iliac kidney All images were personally reviewed by me for this encounter. Wan Ocampo MD, FACS General Surgery Service [phone]
[2023-08-16] MEDS ORDERED: SODIUM CHLORIDE FLUSH 0.9% 10 ML SYRINGE IVP PRN (08:11)
--- NOTE | 2023-08-16 08:20 | HISTORY & PHYSICAL EXAMINATION ---
Chief Complaint - Chief Complaint Chief Complaint: Abd pain, N/V History of Present Illness - Admitted From Admitted From:: ED - History Obtained From History obtained from: ED provider and the patient - History of Present Illness HPI Comment/Other: This is a 63-year-old male with a history of diabetes on insulin, CAD with CABG and renal transplant done 2 and half years ago, followed by . The patient presented to the ED with several hours of abdominal pain, nausea and vomiting. This occurred after eating duarte dinner. Work-up in the ED with imaging showed small bowel obstruction versus ileus. A general surgery consult was obtained and Dr. Ocampo advised that the transplant team be contacted to see if the patient needs transfer to their facility. Our ED provider spoke to providers who stated that he could be managed here. Labs showed a creatinine of 1.4 which is the patient's baseline. NG tube was placed in the ER. The ED provider then spoke to me on the Hospitalist team to have the patient admitted for managing SBO in a renal transplant patient. History - Past Medical History Cardiovascular: reports: Hypertension, High cholesterol, Coronary artery disease Respiratory: reports: Sleep apnea, CPAP use Neuro: reports: Peripheral neuropathy Endocrine/Autoimmune: reports: Type 1 diabetes GI: reports: None : reports: Dialysis HEENT: reports: None Psych: reports: None Musculoskeletal: reports: Osteoarthritis Derm: reports: None MRSA Hx?: No - Past Surgical History Ortho: reports: Carpal Tunnel surgery Cardiovascular: reports: CABG, Coronary stent HEENT: reports: Cataracts Other past surgical history: Renal transplant 2020 - Family & Social History Living arrangement: At home Living Situation: With spouse/s.o. - Substance History Use: Uses substance without health or social issues: NONE - POLST Patient has POLST: No Meds/Allgy - Home Medications Home Medications: Ambulatory Orders Medication Instructions Recorded Confirmed Aspirin Chewable [St Franky 81 mg PO DAILY 05/02/19 08/16/23 Aspirin] Insulin Lispro [Humalog] 1 unit SQ PRN PRN 05/02/19 08/16/23 Levothyroxine [Synthroid] 125 mcg PO DAILY 05/02/19 08/16/23 Pravastatin [Pravachol] 40 mg PO DAILY 05/02/19 08/16/23 buPROPion HCL [Bupropion HCl ER] 150 mg PO DAILY 05/02/19 08/16/23 Acetaminophen [Tylenol] 500 mg PO Q6H PRN 08/16/23 08/16/23 Calcium Carbonate [Tums (Calcium 1,000 mg PO DAILY PRN 08/16/23 08/16/23 Carbonate 500mg)] Famotidine [Acid [employer]] 20 mg PO DAILY 08/16/23 08/16/23 Ferrous Sulfate 325 mg PO DAILY 08/16/23 08/16/23 Gabapentin 400 mg PO QPM 08/16/23 08/16/23 Gabapentin [Neurontin] 100 mg PO DAILY 08/16/23 08/16/23 Isosorbide Mononitrate ER [Imdur] 30 mg PO DAILY 08/16/23 08/16/23 Lisinopril [Zestril] 2.5 mg PO DAILY 08/16/23 08/16/23 Magnesium Oxide 400 mg PO BID 08/16/23 08/16/23 Multivit-Min/Iron Fum/Folic AC 1 each PO DAILY 08/16/23 08/16/23 [One-A-Day Women's Complete Tab] Mycophenolate Sodium [Myfortic] 180 mg PO BID 08/16/23 08/16/23 Tacrolimus [Prograf] 3.5 mg PO QPM 08/16/23 08/16/23 Tacrolimus [Prograf] 4 mg PO DAILY 08/16/23 08/16/23 Tamsulosin HCl [Flomax] 0.4 mg PO QPM 08/16/23 08/16/23 predniSONE [Deltasone] 5 mg PO DAILY 08/16/23 08/16/23 - Allergies Allergies/Adverse Reactions: Allergies Allergy/AdvReac Type Severity Reaction Status Date / Time methylphenidate AdvReac Rash Verified 08/15/23 23:59 Penicillins AdvReac Rash Verified 08/15/23 23:59 pramipexole AdvReac Rash Verified 08/15/23 23:59 simvastatin AdvReac Rash Verified 08/15/23 23:59 Review of Systems - Constitutional Constitutional: reports: Fatigue - Gastrointestinal Gastrointestinal: reports: Abdominal pain, Nausea, Vomiting - All Other Systems All Other Systems: reports: Other (Limited due to pt uncomfortable, retching, not speaking much) Exam - Vital Signs Reviewed Vital Signs: Yes Vital Signs: Vital Signs x48h Temp Pulse Resp BP Pulse Ox 08/16/23 06:20 87 16 179/88 H 96 08/16/23 03:56 74 14 139/65 H 95 08/16/23 03:28 36.5 C 74 16 160/73 H 98 08/16/23 03:17 89 16 160/73 H 99 08/16/23 02:28 36.6 C 84 16 166/70 H 96 08/16/23 01:05 65 16 158/80 H 94 08/16/23 00:49 70 17 177/87 H 100 - Physical Exam General Appearance: positive: Moderate distress (from nausea), Other (Appears very uncomfortable) Eyes Bilateral: positive: Normal inspection, No lid inflammation ENT: positive: ENT inspection nml, No signs of dehydration Neck: positive: Nml inspection, No JVD Respiratory: positive: No respiratory distress, Breath sounds nml Cardiovascular: positive: Regular rate & rhythm, No murmur Abdomen: positive: Other (Firm, no guarding or revbound, absent bowel sounds) Skin: positive: Warm, Dry, Pallor Extremities: positive: Non-tender, No pedal edema Neurologic/Psychiatric: positive: Oriented x3, Motor nml Conclusion/Plan - Problem List (1) Small bowel obstruction Conclusion/Plan: Patient has never had SBO before. The exact transition point is not known however his worst pain is in the right lower quadrant which is also the site of the transplanted kidney in the right groin Plan: NG tube for decompression, set to low intermittent suction NPO IV fluids started IV pain meds IV antiemetics General surgery consult obtained and planned to give a Gastrografin challenge. However, Radiology found out the patient had some type of reaction to something (?Gastrografin), so no small bowel follow-through with Gastrografin challenge will be done. (2) DM type 2 (diabetes mellitus, type 2) Conclusion/Plan: He is usually on an Insulin pump, which he took off and the took it home. Plan: N.p.o. ordered IV fluids containing D5 Hypoglycemia protocol ordered Every 6 hours fingerstick checks and sliding scale insulin coverage Will start with low dose of long-acting insulin (Semglee 5 U sq BID) Check A1c with a.m. labs (3) Renal transplant recipient Conclusion/Plan: According to the discussion between the [facility] provider and our ED provider, his creatinine of 1.4 is at its baseline The patient is on tacrolimus, and a tacrolimus blood level has been sent off Plan: Discussed with Dr Ocampo, and we will clamp his ng tube for 30 min so pt can take his p.o. antirejection meds, but otherwise cont low intermittent suction via his NG tube, for decompression Continue IV fluids Avoid nephrotoxins Follow BMP daily (4) CAD (coronary artery disease) Conclusion/Plan: Patient has a history of CABG. His med list shows that he is on nitrates and daily aspirin Plan: Unfortunately he cannot take his p.o. meds while he has NG tube in place for decompression with intermittent suction ordered I will order BP meds in IV form Switch Isordil to topical NTP for now (5) JAY JAY on CPAP Conclusion/Plan: I have ordered the home CPAP device to be used while he is here - Lab Results Fish Bones: 08/16/23 00:11 08/16/23 00:11 - Diagnostic Imaging Results Diagnostic Imaging Results: positive: Final report reviewed - Other Other Results/Comments: Attestation: The patient is expected to be hospitalized for greater than 2 midnights and is expected to be discharged or transferred to another facility within 96 hours: Yes.
[2023-08-16] MEDS ORDERED: ACETAMINOPHEN 1,000 MG/100 ML 1,000 MG/100 ML BAG IV PRN (08:25)
[2023-08-16] MEDS ORDERED: HYDROmorphone 1 MG/ML CARPUJECT IVP PRN (08:25)
[2023-08-16] MEDS ORDERED: hydrALAZINE INJ 20 MG/ML VIAL IVP PRN (08:26)
--- NOTE | 2023-08-16 08:52 | CT Report ---
PROCEDURE: ABDOMEN/PELVIS WO INDICATIONS: abd. pain, TTP TECHNIQUE: A CT scan of the abdomen and pelvis was performed without the use of intravenous contrast. Images we re recorded and evaluated at appropriate window settings. Reformats: coronal and sagittal. For radiat ion dose reduction, the following was used: automated exposure control, adjustment of mA and/or kV ac cording to patient size. COMPARISON: None. FINDINGS: Image quality: Excellent. Lung bases and heart: There is calcification of the coronary vasculature. Liver: No solid mass. Gallbladder and biliary tree: Multiple calculi within the gallbladder lumen. No biliary ductal dilata tion. Spleen: No splenomegaly. Pancreas: No pancreatic ductal dilation. Adrenals: No adrenal nodule. Kidneys and ureters: Moderate to severe bilateral renal atrophy. No nephrolithiasis. No hydronephrosi s. Right iliac fossa renal transplant which is grossly unremarkable. Bowel and peritoneum: Multiple moderately distended loops of small bowel. Moderate stool throughout t he colon. Normal appendix. Lymph nodes: No central or retroperitoneal adenopathy. Vessels: No infrarenal aortic aneurysm. PELVIS Reproductive organs: Unremarkable. Bladder: No wall thickness, accounting for underdistention. Pelvic lymph nodes: No pelvic adenopathy by size criteria. Bones: No aggressive osseous abnormality. Other: No significant ventral or inguinal hernia. IMPRESSION: 1. Small bowel obstruction. 2. No evidence of urinary tract calcification or junction. 3. Normal appendix. 4. Coronary artery disease. 5. Cholelithiasis. Reviewed by: Karan Bach MD on 08/16/2023 8:50 AM PDT Approved by: Karan Bach MD on 08/16/2023 8:50 AM PDT Station ID: [id number]
[2023-08-16] MEDS ORDERED: TACROLIMUS 0.5 MG CAPSULE PO SCH ×2 (09:00→21:00)
[2023-08-16] MEDS ORDERED: DIATR MEGLU/DIATRIZOATE SODIUM 120 ML BOTTLE ONE (09:19)
[2023-08-16] MEDS: PROCHLORPERAZINE 10 MG/2 ML VIAL IVP PRN ×3 (09:29→23:34)
[2023-08-16] MEDS: SODIUM CHLORIDE FLUSH 0.9% 10 ML SYRINGE IVP SCH ×2 (09:32→16:06)
[2023-08-16] MEDS: predniSONE 5 MG TABLET PO SCH (09:39)
[2023-08-16] MEDS: DEXTROSE 5%-0.9% NACL 1,000 ML IV SCH ×2 (09:41→20:02)
[2023-08-16] MEDS: FAMOTIDINE 20 MG/2 ML VIAL IVP SCH ×2 (09:42→21:11)
--- NOTE | 2023-08-16 10:10 | PROVIDER PROGRESS NOTE ---
Progress Note General Surgery Progress Note Saud claims to have a reaction to oral contrast. I asked for radiology's input and they would advise against an oral contrast study. The SBFT challenge has been cancelled. We will continue NGT decompression and other appropriate supportive care. If this is an ileus, it should resolve without a cpontrast study but will perhaps take a bit longer. Álvaro Ocampo MD General Surgery Service
[2023-08-16] MEDS ORDERED: INSULIN REGULAR HUMAN 300 UNIT/3 ML VIAL SUBQ SCH (12:00)
[2023-08-16] MEDS: ONDANSETRON 4 MG/2 ML VIAL IVP PRN ×2 (12:03→19:50)
[2023-08-16] MEDS: NITROGLYCERIN 2% PASTE TOP SCH ×2 (12:18→23:48)
--- NOTE | 2023-08-16 12:56 | PHARMACY PROGRESS NOTE ---
- Best Possible Medication History Admit Date and Time: 08/16/23 0811 Processed by: Pharmacy Medication History completed: Yes Patient Interview: Completed Secondary Source(s): Written medication list, Pharmacy records, Insurance records As the person ultimately responsible for medication therapy, providers are able to order a medication from an existing home medication list in [facility] via the "Reconcile Routine" prior to Confirmation of that medication by application support. Such practice is discouraged except when the physician, in their clinical judgment, deems that a medical need exists for a medication without regard to previous use.
--- NOTE | 2023-08-16 16:37 | PROVIDER PROGRESS NOTE ---
Progress Note General Surgery Progress Note S: Saud is resting comfortably. His abdominal discomfort and bloating are almost gone. He thinks he passed flatus this afternoon O: VSS, afeb; Abdomen is soft, non-tender and with less distension compared to this morning. The NGT has pulled very little succus A: Ileus vs SBO - clinically improved P: Continue NGT, ice chips, may ambulate. NGT will be removed once bowel function returns Álvaro Ocampo MD General Surgery Service
[2023-08-16] MEDS: INSULIN REGULAR HUMAN 300 UNIT/3 ML VIAL SUBQ SCH ×3 (18:24→23:49)
[2023-08-16] MEDS: TACROLIMUS 0.5 MG CAPSULE PO SCH (20:29)
[2023-08-16] MEDS: INSULIN GLARGINE-YFGN 300 UNIT/3 ML PEN SUBQ SCH (21:12)
[2023-08-17] MEDS: SODIUM CHLORIDE FLUSH 0.9% 10 ML SYRINGE IVP SCH ×3 (03:05→17:04)
[2023-08-17] MEDS: ONDANSETRON 4 MG/2 ML VIAL IVP PRN (03:05)
[2023-08-17] MEDS: PROCHLORPERAZINE 10 MG/2 ML VIAL IVP PRN (04:53)
[2023-08-17] MEDS: DEXTROSE 5%-0.9% NACL 1,000 ML IV SCH ×3 (04:59→17:03)
[2023-08-17] MEDS: INSULIN REGULAR HUMAN 300 UNIT/3 ML VIAL SUBQ SCH ×4 (05:02→18:04)
[2023-08-17 05:34] LABS: BASOPHILS % (AUTO) 0.3 %; EOSINOPHILS % (AUTO) 0.1 %; HCT - HEMATOCRIT 42.1 % (42.0-52.0); HGB - HEMOGLOBIN 13.4 g/dL (14.0-18.0); LYMPHOCYTES # (AUTO) 0.5 10^3/uL (1.5-3.5); LYMPHOCYTES % (AUTO) 4.3 %; MEAN CORPUSCULAR HEMOGLOBIN 30.5 pg (27.0-31.0); MEAN CORPUSCULAR HGB CONC 31.8 g/dL (32.0-36.0); MEAN CORPUSCULAR VOLUME 95.9 fL (80.0-94.0); MEAN PLATELET VOLUME 9.8 fL (7.4-11.4); MONOCYTES # (AUTO) 0.8 10^3/uL (0.0-1.0); MONOCYTES % (AUTO) 7.5 %; NEUTROPHILS # (AUTO) 9.7 10^3/uL (1.5-6.6); NEUTROPHILS % (AUTO) 87.5 %; PLT - PLATELET COUNT 244 10^3/uL (130-450); RED BLOOD COUNT 4.39 10^6/uL (4.70-6.10); RED CELL DISTRIBUTION WIDTH 13.2 % (12.0-15.0)
[2023-08-17 05:50] LABS: CALCIUM 9.5 mg/dL (8.5-10.3); CREATININE 1.3 mg/dL (0.6-1.3); MAGNESIUM 1.6 mg/dL (1.7-2.3); PHOSPHORUS 2.4 mg/dL (2.5-5.0); POTASSIUM 3.8 mmol/L (3.5-4.5)
[2023-08-17 06:03] LABS: THYROID STIMULATING HORMONE 1.64 uIU/mL (0.34-5.60)
--- NOTE | 2023-08-17 07:21 | PROVIDER PROGRESS NOTE ---
Subjective - General Admit Date: 08/16/23 - Other Other Information/Narrative: Saud has had an uneventful evening. He claims to have passed flatus but has not had a bowel motion. His abdominal discomfort seems improved since admission. He is tolerating the NGT and has no nausea. Objective - Patient Data Vital Signs: Vital Signs x48h Temp Pulse Resp BP Pulse Ox 08/17/23 05:05 98.1 F 90 18 189/79 H 93 Weight: Weight 08/15/23 08/16/23 08/17/23 23:59 23:59 22:59 Weight (kg) 81.9 kg Intake & Output: Intake and Output Totals x24h 08/15/23 08/16/23 08/17/23 23:59 23:59 22:59 Intake Total 2075 1010 Output Total 1885 400 Balance 190 610 - Lab Results Lab Results: 08/17/23 05:24 08/17/23 05:24 Other Lab Results: Lab Results x24hrs 08/17/23 08/17/23 08/17/23 Range/Units 05:24 05:24 04:51 WBC 11.0 H (4.8-10.8) x10^3/uL RBC 4.39 L (4.70-6.10) 10^6/uL Hgb 13.4 L (14.0-18.0) g/dL Hct 42.1 (42.0-52.0) % MCV 95.9 H (80.0-94.0) fL MCH 30.5 (27.0-31.0) pg MCHC 31.8 L (32.0-36.0) g/dL RDW 13.2 (12.0-15.0) % Plt Count 244 (130-450) 10^3/uL MPV 9.8 (7.4-11.4) fL Neut # (Auto) 9.7 H (1.5-6.6) 10^3/uL Lymph # (Auto) 0.5 L (1.5-3.5) 10^3/uL Vance # (Auto) 0.8 (0.0-1.0) 10^3/uL Eos # (Auto) 0.0 (0.0-0.7) 10^3/uL Baso # (Auto) 0.0 (0.0-0.1) 10^3/uL Absolute Nucleated RBC 0.00 x10^3/uL Nucleated RBC % 0.0 /100WBC Sodium 143 (135-145) mmol/L Potassium 3.8 (3.5-4.5) mmol/L Chloride 107 (101-111) mmol/L Carbon Dioxide 25 (21-32) mmol/L Anion Gap 11.0 (6-13) BUN 25 H (6-20) mg/dL Creatinine 1.3 (0.6-1.3) mg/dL Estimated GFR (MDRD) 55 L (>89) Glucose 309 H (74-104) mg/dL POC Whole Bld Glucose 286 H (70 - 100) mg/dL Calcium 9.5 (8.5-10.3) mg/dL Phosphorus 2.4 L (2.5-5.0) mg/dL Magnesium 1.6 L (1.7-2.3) mg/dL TSH 1.64 (0.34-5.60) uIU/mL 08/16/23 08/16/23 08/16/23 Range/Units 23:33 18:12 16:48 WBC (4.8-10.8) x10^3/uL RBC (4.70-6.10) 10^6/uL Hgb (14.0-18.0) g/dL Hct (42.0-52.0) % MCV (80.0-94.0) fL MCH (27.0-31.0) pg MCHC (32.0-36.0) g/dL RDW (12.0-15.0) % Plt Count (130-450) 10^3/uL MPV (7.4-11.4) fL Neut # (Auto) (1.5-6.6) 10^3/uL Lymph # (Auto) (1.5-3.5) 10^3/uL Vance # (Auto) (0.0-1.0) 10^3/uL Eos # (Auto) (0.0-0.7) 10^3/uL Baso # (Auto) (0.0-0.1) 10^3/uL Absolute Nucleated RBC x10^3/uL Nucleated RBC % /100WBC Sodium (135-145) mmol/L Potassium (3.5-4.5) mmol/L Chloride (101-111) mmol/L Carbon Dioxide (21-32) mmol/L Anion Gap (6-13) BUN (6-20) mg/dL Creatinine (0.6-1.3) mg/dL Estimated GFR (MDRD) (>89) Glucose (74-104) mg/dL POC Whole Bld Glucose 363 H 452 H 452 H (70 - 100) mg/dL Calcium (8.5-10.3) mg/dL Phosphorus (2.5-5.0) mg/dL Magnesium (1.7-2.3) mg/dL TSH (0.34-5.60) uIU/mL 08/16/23 Range/Units 11:19 WBC (4.8-10.8) x10^3/uL RBC (4.70-6.10) 10^6/uL Hgb (14.0-18.0) g/dL Hct (42.0-52.0) % MCV (80.0-94.0) fL MCH (27.0-31.0) pg MCHC (32.0-36.0) g/dL RDW (12.0-15.0) % Plt Count (130-450) 10^3/uL MPV (7.4-11.4) fL Neut # (Auto) (1.5-6.6) 10^3/uL Lymph # (Auto) (1.5-3.5) 10^3/uL Vance # (Auto) (0.0-1.0) 10^3/uL Eos # (Auto) (0.0-0.7) 10^3/uL Baso # (Auto) (0.0-0.1) 10^3/uL Absolute Nucleated RBC x10^3/uL Nucleated RBC % /100WBC Sodium (135-145) mmol/L Potassium (3.5-4.5) mmol/L Chloride (101-111) mmol/L Carbon Dioxide (21-32) mmol/L Anion Gap (6-13) BUN (6-20) mg/dL Creatinine (0.6-1.3) mg/dL Estimated GFR (MDRD) (>89) Glucose (74-104) mg/dL POC Whole Bld Glucose 495 H (70 - 100) mg/dL Calcium (8.5-10.3) mg/dL Phosphorus (2.5-5.0) mg/dL Magnesium (1.7-2.3) mg/dL TSH (0.34-5.60) uIU/mL - Current Medications Current Medications: Current Medications Generic Name Dose Route Start Last Admin Trade Name Freq PRN Reason Stop Dose Admin Famotidine 20 mg 08/16/23 09:00 08/16/23 21:11 Famotidine 20 Mg/2 Ml Vial IVP 20 mg BID [facility]OVER Administration Hydralazine HCl 10 mg 08/16/23 08:26 08/16/23 12:03 Hydralazine Inj 20 Mg/Ml Vial IVP 10 mg Q6H PRN Administration Hypertensive Emergency Dextrose/Sodium Chloride 1,000 mls @ 100 mls/hr 08/16/23 09:00 08/17/23 04:59 D5ns IV 100 mls/hr .Q10H [facility] Administration Acetaminophen 1,000 mg in 100 mls @ 400 mls/hr 08/16/23 08:25 08/16/23 16:25 Acetaminophen IV Infused Q6HR PRN Infusion Moderate Pain (Level 4-6) Insulin Glargine-yfgn 5 unit 08/16/23 21:00 08/16/23 21:12 Insulin Glargine-Yfgn 300 Unit/3 Ml Pen SUBQ 5 unit BID GROVER Administration Insulin Human Regular 1 - 9 unit 08/16/23 18:00 08/17/23 05:02 Insulin Regular Human 300 Unit/3 Ml Vial SUBQ Not Given Q6HR [facility] Protocol Insulin Human Regular 2 - 10 unit 08/17/23 00:00 08/17/23 05:02 Insulin Regular Human 300 Unit/3 Ml Vial SUBQ 8 unit Q6HR GROVER Administration Protocol Nitroglycerin 0.5 inch 08/16/23 12:00 08/16/23 23:48 Nitroglycerin 2% Paste TOP 0.5 inch Q12H [facility] Administration Ondansetron HCl 4 mg 08/16/23 08:16 08/17/23 03:05 Ondansetron 4 Mg/2 Ml Vial IVP 4 mg Q4HR PRN Administration Nausea / Vomiting Prednisone 5 mg 08/16/23 09:00 08/16/23 09:39 Prednisone 5 Mg Tablet PO 5 mg DAILY [facility] Administration Prochlorperazine Edisylate 10 mg 08/16/23 08:16 08/17/23 04:53 Prochlorperazine 10 Mg/2 Ml Vial IVP 10 mg Q6HR PRN Administration Nausea / Vomiting Sodium Chloride 10 ml 08/16/23 09:00 08/17/23 03:05 Sodium Chloride Flush 0.9% 10 Ml Syringe IVP 10 ml 0100,0900,1700 GR[facility] Administration Tacrolimus 3.5 mg 08/16/23 20:00 08/16/23 20:29 Tacrolimus 0.5 Mg Capsule PO 3.5 mg DAILY@2000 GROVER Administration - Physical Exam General Appearance: positive: No acute distress Respiratory: positive: No respiratory distress, Breath sounds nml Cardiovascular: positive: Regular rate & rhythm Abdomen: positive: Non-tender, Nml bowel sounds, Other (No tenderness; Minimal distension) Skin: positive: Warm Extremities: positive: Nml appearance ABX Reporting Has patient been on IV antibiotics over the past 48 hours?: No Impression/Plan - Problem List Problem List: Assessment: 1) SBO vs ileus - clinically improved but no bowel movement yet. Unable to offer gastrografin due to prior intolerance. No clinical or lab evidence of bowel ischemia 2) Hypomagnesemia, hypophosphatemia 3) Hyperglycemia - on SS insulin Recommendation: 1) Continue NGT decompression until there is lower GI tract activity 2) KUB today (I ordered) 3) Ambulate 4) Replace Mg and Phosphorus Álvaro Ocampo MD, [facility] General Surgery Service
[2023-08-17] MEDS: TACROLIMUS 0.5 MG CAPSULE PO SCH ×2 (08:10→20:56)
[2023-08-17] MEDS ORDERED: MAGNESIUM SULFATE 2 GRAM 2 GM/50 ML BAG IV ONE (08:11)
[2023-08-17] MEDS ORDERED: POTASSIUM PHOSPHATE 21 MMOL in SODIUM CHLORIDE 0.9% 250 ML IV ONE (08:12)
[2023-08-17] MEDS: predniSONE 5 MG TABLET PO SCH (08:13)
[2023-08-17] MEDS: FAMOTIDINE 20 MG/2 ML VIAL IVP SCH ×2 (08:17→20:59)
[2023-08-17] MEDS: INSULIN GLARGINE-YFGN 300 UNIT/3 ML PEN SUBQ SCH ×2 (08:21→21:00)
--- NOTE | 2023-08-17 08:27 | PROVIDER PROGRESS NOTE ---
Assessment/Plan - Problem List (1) Small bowel obstruction Assessment/Plan: Patient has never had SBO before. He could not get Gastrograffin due to allegy/intolerance to it He is no longer in pain or nauseated today and says he passed gas, but no BM yet. I hear bowel sounds only in LLQ today Plan: Discussed with Dr Ocampo. Clamp NG tube for 4 hours, check residual, then may be able to remove ng tube and advance diet, if small amt of residual. Otherwise, he will need more decompression and no diet yet today. IV fluids cont but will be tapered down as a diet is advanced Cont prn IV pain meds and IV antiemetics (2) DM type 2 (diabetes mellitus, type 2) Conclusion/Plan: He is usually on an Insulin pump, which he took off and the took it home. His A1c came back at 7.1 indicating good glu control on his pump Plan: Remain on IV fluids containing D5, until taking a diet reliably Cont q6h finderstivck glu checks and sliding scale insulin coverage, cont h ypoglycemia protocol Cont low dose of long-acting insulin (Semglee 5 U sq BID) (3) Hypomagnesemia Conclusion/Plan: Due to losses from vomiting Plan: Replace w/ Mg rider Follow BMP and Mg daily (4) Renal transplant recipient Conclusion/Plan: According to the discussion between the provider and our ED provider, his cr eatinine of 1.4 is at its baseline The patient is on tacrolimus, and a tacrolimus blood level has been sent off Plan: Discussed with Dr Ocampo, and we have been clamping his ng tube for 30 min so pt can take his p.o. antirejection meds Continue gentle IV fluids until po hydration is adequate Avoid nephrotoxins Follow BMP daily (5) HTN Conclusion/Plan: BP as high at 170-180 systolic, probably from pain and not being on his usual po meds. I ordered iv Hydralazine q8h scheduled Plan: I will resume his usual po BP meds as we advance the diet (6) CAD (coronary artery disease) Conclusion/Plan: Patient has a history of CABG. His med list shows that he is on nitrates and daily aspirin Plan: I will resume his usual po meds when NG tube decompression is removed Cont Isordil changed to topical NTP for now (7) JAY JAY on CPAP Conclusion/Plan: Cont his home CPAP device to be used while he is here - Current Meds Current Meds: Current Medications Generic Name Dose Route Start Last Admin Trade Name Freq PRN Reason Stop Dose Admin Famotidine 20 mg 08/16/23 09:00 08/17/23 08:17 Famotidine 20 Mg/2 Ml Vial IVP 20 mg BID [facility] Administration Dextrose/Sodium Chloride 1,000 mls @ 100 mls/hr 08/16/23 09:00 08/17/23 04:59 D5ns IV 100 mls/hr .Q10H [facility] Administration Acetaminophen 1,000 mg in 100 mls @ 400 mls/hr 08/16/23 08:25 08/16/23 16:25 Acetaminophen IV Infused Q6HR PRN Infusion Moderate Pain (Level 4-6) Insulin Glargine-yfgn 5 unit 08/16/23 21:00 08/16/23 21:12 Insulin Glargine-Yfgn 300 Unit/3 Ml Pen SUBQ 5 unit BID [facility] Administration Insulin Human Regular 1 - 9 unit 08/16/23 18:00 08/17/23 05:02 Insulin Regular Human 300 Unit/3 Ml Vial SUBQ Not Given Q6HR [facility] Protocol Insulin Human Regular 2 - 10 unit 08/17/23 00:00 08/17/23 05:02 Insulin Regular Human 300 Unit/3 Ml Vial SUBQ 8 unit Q6HR [facility] Administration Protocol Nitroglycerin 0.5 inch 08/16/23 12:00 08/16/23 23:48 Nitroglycerin 2% Paste TOP 0.5 inch Q12H [facility] Administration Ondansetron HCl 4 mg 08/16/23 08:16 08/17/23 03:05 Ondansetron 4 Mg/2 Ml Vial IVP 4 mg Q4HR PRN Administration Nausea / Vomiting Prednisone 5 mg 08/16/23 09:00 08/17/23 08:13 Prednisone 5 Mg Tablet PO 5 mg DAILY [facility] Administration Prochlorperazine Edisylate 10 mg 08/16/23 08:16 08/17/23 04:53 Prochlorperazine 10 Mg/2 Ml Vial IVP 10 mg Q6HR PRN Administration Nausea / Vomiting Sodium Chloride 10 ml 08/16/23 09:00 08/17/23 08:17 Sodium Chloride Flush 0.9% 10 Ml Syringe IVP 10 ml 0100,0900,1700 [facility] Administration Tacrolimus 4 mg 08/17/23 08:00 08/17/23 08:10 Tacrolimus 0.5 Mg Capsule PO 4 mg DAILY@08 [facility] Administration Tacrolimus 3.5 mg 08/16/23 20:00 08/16/23 20:29 Tacrolimus 0.5 Mg Capsule PO 3.5 mg DAILY@1999 [facility] Administration - Lab Result Fish Bone Diagrams: 08/17/23 05:24 08/17/23 05:24 - Additional Planning My Orders: My Active Orders 08/16/23 08:25 Acetaminophen 1,000 mg/100 ml [Acetaminophen] 1,000 mg in 100 ml IV Q6HR HYDROmorphone 1MG CARP [Dilaudid 1Mg Carp] 1 mg IVP Q2HR PRN 08/16/23 08:41 NG Tube Care [RC] Q4HR 08/16/23 08:45 Miscellaenous Nursing Order [RC] QSHIFT 08/16/23 09:00 Dextrose 5%-0.9% NaCl [D5ns] 1,000 ml IV 100 mls/hr Famotidine [Pepcid] 20 mg IVP BID Sodium Chloride Flush 0.9% [Normal Saline Flush 0.9%] 10 ml IVP 0100,0900,1700 predniSONE [Deltasone] 5 mg PO DAILY 08/16/23 12:00 Nitroglycerin 2% Paste (Pkt) [Nitro-Bid (Pkt)] 0.5 inch TOP Q12H 08/16/23 14:45 Home CPAP/BiPAP [RC] .ONCE 08/16/23 18:00 Insulin Regular Human [Humulin R] 1 - 9 unit SUBQ Q6HR 08/16/23 20:00 Tacrolimus [Prograf] 3.5 mg PO DAILY@199908/16/23 21:00 Insulin Glargine-Yfgn [Semglee] 5 unit SUBQ BID 08/17/23 00:00 Insulin Regular Human [Humulin R] 2 - 10 unit SUBQ Q6HR 08/17/23 05:24 HEMOGLOBIN A1c% [CHEM] DAILYLAB 08/17/23 08:00 Tacrolimus [Prograf] 4 mg PO DAILY@0800 08/17/23 08:11 MAGNESIUM SULFATE 2 GRAMS IV X1 Magnesium Sulfate 2 Gram [Magnesium Sulfate] 2 gm in 50 ml IV ONCE 08/17/23 08:12 Potassium Phosphate/NS 21 mmol/250 mL x 1 Potassium Phosphate 21 mmol Sodium Chloride 0.9% [Normal Saline 0.9%] 250 ml IV ONCE 08/17/23 09:00 hydrALAZINE INJ [Apresoline Inj] 10 mg IVP Q8H 08/18/23 05:00 BMP - BASIC METABOLIC PANEL [CHEM] DAILYLAB CBC - COMP BLD CT W/AUTO DIFF [HEME] DAILYLAB 08/19/23 05:00 BMP - BASIC METABOLIC PANEL [CHEM] DAILYLAB CBC - COMP BLD CT W/AUTO DIFF [HEME] DAILYLAB 08/20/23 05:00 BMP - BASIC METABOLIC PANEL [CHEM] DAILYLAB CBC - COMP BLD CT W/AUTO DIFF [HEME] DAILYLAB Subjective - Subjective Patient Reports: Feeling Better (No more abd pain or nausea, he passed flatus. No BM yet) Objective Vital Signs: Vital Signs - 24 hr 08/16/23 08/16/23 08/16/23 09:51 11:21 12:25 Temperature 36.4 C L Heart Rate [ 92 95 102 H Brachial] Respiratory 20 Rate Blood Pressure Blood Pressure 190/76 H 190/74 H 177/55 H [Right Brachial artery] O2 Saturation 94 94 95 08/16/23 08/16/23 08/16/23 12:33 12:52 15:46 Temperature 36.4 C L Heart Rate [ 92 93 Brachial] Respiratory 24 Rate Blood Pressure 177/55 H Blood Pressure 179/72 H 187/72 H [Right Brachial artery] O2 Saturation 100 08/16/23 08/17/23 08/17/23 23:33 05:05 07:50 Temperature 36.6 C 36.7 C 36.5 C Heart Rate [ 91 90 95 Brachial] Respiratory 20 18 16 Rate Blood Pressure Blood Pressure 173/67 H 189/79 H 189/77 H [Right Brachial artery] O2 Saturation 95 93 96 Oxygen O2 Source Room air I&O (Last 24 Hrs): Intake and Output Totals x24h 08/15/23 08/16/23 08/17/23 23:59 23:59 22:59 Intake Total 2075 1010 Output Total 1885 400 Balance 190 610 General: Alert, Oriented x3, Other (appears tired) HEENT: Mucous membr. moist/pink Neck: Supple, No JVD Neuro: Alert, Non Focal Cardiovascular: Regular rate, No murmurs Respiratory: No respiratory distress, Breath sounds nml Abdomen: Soft, No tenderness, Other (Bowel sounds only heard in LLQ) Extremities: No clubbing, No edema, No tenderness/swelling - Results Results: Laboratory Results WBC 11.0 x10^3/uL (4.8-10.8) H 08/17/23 05:24 RBC 4.39 10^6/uL (4.70-6.10) L 08/17/23 05:24 Hgb 13.4 g/dL (14.0-18.0) L 08/17/23 05:24 Hct 42.1 % (42.0-52.0) 08/17/23 05:24 MCV 95.9 fL (80.0-94.0) H 08/17/23 05:24 MCH 30.5 pg (27.0-31.0) 08/17/23 05:24 MCHC 31.8 g/dL (32.0-36.0) L 08/17/23 05:24 RDW 13.2 % (12.0-15.0) 08/17/23 05:24 Plt Count 244 10^3/uL (130-450) 08/17/23 05:24 MPV 9.8 fL (7.4-11.4) 08/17/23 05:24 Neut # (Auto) 9.7 10^3/uL (1.5-6.6) H 08/17/23 05:24 Lymph # (Auto) 0.5 10^3/uL (1.5-3.5) L 08/17/23 05:24 [place] # (Auto) 0.8 10^3/uL (0.0-1.0) 08/17/23 05:24 Eos # (Auto) 0.0 10^3/uL (0.0-0.7) 08/17/23 05:24 Baso # (Auto) 0.0 10^3/uL (0.0-0.1) 08/17/23 05:24 Absolute Nucleated RBC 0.00 x10^3/uL 08/17/23 05:24 Nucleated RBC % 0.0 /100WBC 08/17/23 05:24 Sodium 143 mmol/L (135-145) 08/17/23 05:24 Potassium 3.8 mmol/L (3.5-4.5) 08/17/23 05:24 Chloride 107 mmol/L (101-111) 08/17/23 05:24 Carbon Dioxide 25 mmol/L (21-32) 08/17/23 05:24 Anion Gap 11.0 (6-13) 08/17/23 05:24 BUN 25 mg/dL (6-20) H 08/17/23 05:24 Creatinine 1.3 mg/dL (0.6-1.3) 08/17/23 05:24 Estimated GFR (MDRD) 55 (>89) L 08/17/23 05:24 Glucose 309 mg/dL (74-104) H 08/17/23 05:24 POC Whole Bld Glucose 286 mg/dL (70 - 100) H 08/17/23 04:51 Calcium 9.5 mg/dL (8.5-10.3) 08/17/23 05:24 Phosphorus 2.4 mg/dL (2.5-5.0) L 08/17/23 05:24 Magnesium 1.6 mg/dL (1.7-2.3) L 08/17/23 05:24 Total Bilirubin 0.4 mg/dL (0.2-1.0) 08/16/23 00:11 AST 20 IU/L (10-42) 08/16/23 00:11 ALT 21 IU/L (10-60) 08/16/23 00:11 Alkaline Phosphatase 59 IU/L (42-121) 08/16/23 00:11 Troponin I High Sens 6.9 ng/L (2.3-19.7) 08/16/23 00:11 Total Protein 6.6 g/dL (6.4-8.9) 08/16/23 00:11 Albumin 4.4 g/dL (3.2-5.5) 08/16/23 00:11 Globulin 2.2 g/dL (2.1-4.2) 08/16/23 00:11 Albumin/Globulin Ratio 2.0 (1.0-2.2) 08/16/23 00:11 Lipase < 10 U/L (11-82) L 08/16/23 00:11 TSH 1.64 uIU/mL (0.34-5.60) 08/17/23 05:24 Urine Color YELLOW 08/16/23 06:25 Urine Clarity CLEAR (CLEAR) 08/16/23 06:25 Urine pH 7.5 PH (5.0-7.5) 08/16/23 06:25 Ur Specific [place] 1.015 (1.002-1.030) 08/16/23 06:25 Urine Protein TRACE mg/dL (NEGATIVE) 08/16/23 06:25 Urine Glucose (UA) 500 mg/dL (NEGATIVE) H 08/16/23 06:25 Urine Ketones 15 mg/dL (NEGATIVE) H 08/16/23 06:25 Urine Occult Blood NEGATIVE (NEGATIVE) 08/16/23 06:25 Urine Nitrite NEGATIVE (NEGATIVE) 08/16/23 06:25 Urine Bilirubin NEGATIVE (NEGATIVE) 08/16/23 06:25 Urine Urobilinogen 0.2 (NORMAL) E.U./dL (NORMAL) 08/16/23 06:25 Ur Leukocyte Esterase NEGATIVE (NEGATIVE) 08/16/23 06:25 Ur Microscopic Review NOT INDICATED 08/16/23 06:25 Urine Culture Comments NOT INDICATED 08/16/23 06:25 - Procedures Procedures: Procedures EXCISION OF SIGMOID COLON, ENDO (12/28/20)
[2023-08-17] MEDS ORDERED: SODIUM CHLORIDE 0.9% 500 ML IV ONE (08:46)
--- NOTE | 2023-08-17 08:54 | XRAY Report ---
PROCEDURE: Abdomen 1 View X-Ray INDICATIONS: F/U SBO vs Ileus TECHNIQUE: One view of the abdomen acquired. COMPARISON: CT 08/16/2023 FINDINGS: Surgical changes and devices: Nasogastric tube tip is seen in the left upper quadrant of the abdomen. . Bowel: There are no air-filled dilated small bowel loops seen. Moderately increased amount of solid s tool present throughout the colon and rectum.. Soft tissues: No suspicious abdominal calcifications. Visualized solid organ contours appear normal in size. Bones: No suspicious bony lesions. IMPRESSION: 1. Decompression of air-filled small bowel loops seen on prior CT. 2. Moderately increased stool burden. Reviewed by: Ana Loera MD on 08/17/2023 8:52 AM PST Approved by: Ana Loera MD on 08/17/2023 8:52 AM PST Station ID: [id number]
[2023-08-17] MEDS: hydrALAZINE INJ 20 MG/ML VIAL IVP SCH ×2 (08:56→16:59)
--- NOTE | 2023-08-17 08:56 | PROVIDER PROGRESS NOTE ---
Progress Note General Surgery Progress Note KUB shows no small bowel distension (my interpretation as official reading pending). The colon is filled with air and stool. Plan: Clamp NGT and offer clear liquids. If he tolerates the tube clamped for 4-5 hours, it can be removed, his diet can be advanced, and he can be discharged later today. Álvaro Ocampo MD General Surgery Service
[2023-08-17 10:15] LABS: ESTIMATED AVERAGE GLUCOSE 157 mg/dL (70-100); HEMOGLOBIN A1c% 7.1 % (4.27-6.07)
[2023-08-17] MEDS: NITROGLYCERIN 2% PASTE TOP SCH (11:55)
[2023-08-17] MEDS ORDERED: BENZOCAINE/MENTHOL LOZENGE MM PRN (14:01)
[2023-08-17] MEDS ORDERED: TAMSULOSIN 0.4 MG CAPSULE PO SCH (21:00)
[2023-08-18] MEDS: INSULIN REGULAR HUMAN 300 UNIT/3 ML VIAL SUBQ SCH ×3 (00:19→11:57)
[2023-08-18] MEDS: NITROGLYCERIN 2% PASTE TOP SCH ×2 (00:20→11:56)
[2023-08-18] MEDS: hydrALAZINE INJ 20 MG/ML VIAL IVP SCH (00:21)
[2023-08-18] MEDS: SODIUM CHLORIDE FLUSH 0.9% 10 ML SYRINGE IVP SCH ×2 (00:24→08:54)
[2023-08-18] MEDS: DEXTROSE 5%-0.9% NACL 1,000 ML IV SCH (03:41)
[2023-08-18 05:14] LABS: BASOPHILS % (AUTO) 0.2 %; HCT - HEMATOCRIT 39.5 % (42.0-52.0); HGB - HEMOGLOBIN 13.1 g/dL (14.0-18.0); LYMPHOCYTES # (AUTO) 0.5 10^3/uL (1.5-3.5); MEAN CORPUSCULAR HEMOGLOBIN 31.3 pg (27.0-31.0); MEAN CORPUSCULAR HGB CONC 33.2 g/dL (32.0-36.0); MEAN CORPUSCULAR VOLUME 94.3 fL (80.0-94.0); MONOCYTES # (AUTO) 1.3 10^3/uL (0.0-1.0); MONOCYTES % (AUTO) 8.4 %; NEUTROPHILS # (AUTO) 14.1 10^3/uL (1.5-6.6); NEUTROPHILS % (AUTO) 87.8 %; PLT - PLATELET COUNT 214 10^3/uL (130-450); RED BLOOD COUNT 4.19 10^6/uL (4.70-6.10); RED CELL DISTRIBUTION WIDTH 13.5 % (12.0-15.0)
[2023-08-18 05:29] LABS: CREATININE 1.2 mg/dL (0.6-1.3); POTASSIUM 3.4 mmol/L (3.5-4.5)
--- NOTE | 2023-08-18 06:04 | PROVIDER PROGRESS NOTE ---
Progress Note General Surgery Progress Note Saud feels much better. He has no nausea, no vomiting, and his abdominal pain is gone. He passed a constipated bowel motion last night. His VS are normal; His abdomen is soft, non-distended and without tenderness A: Resolved ileus P: Remove NGT, clear liquid diet, continue renal transplant medications, possible discharge later today. I am off-service at 0700 and will sign this patient out to Dr. Leobardo Iqbal who will be providing surgical coverage today. Álvaro Ocampo MD General Surgery Service
[2023-08-18 07:22] VITALS: O2SAT 98
[2023-08-18] MEDS ORDERED: LEVOTHYROXINE 125 MCG TABLET PO SCH (08:07)
[2023-08-18] MEDS: TACROLIMUS 0.5 MG CAPSULE PO SCH (08:29)
[2023-08-18] MEDS: ASPIRIN CHEW 81 MG TABLET PO SCH ×2 (08:50→08:51)
[2023-08-18] MEDS: predniSONE 5 MG TABLET PO SCH ×2 (08:50→08:51)
[2023-08-18] MEDS: FAMOTIDINE 20 MG/2 ML VIAL IVP SCH (08:53)
[2023-08-18] MEDS: INSULIN GLARGINE-YFGN 300 UNIT/3 ML PEN SUBQ SCH (08:54)
[2023-08-18 09:00] VITALS: BP 172/75
[2023-08-18] MEDS ORDERED: GABAPENTIN 100 MG CAPSULE PO SCH (09:00)
[2023-08-18] MEDS ORDERED: MAGNESIUM OXIDE 400 MG TABLET PO SCH (09:00)
[2023-08-18] MEDS ORDERED: buPROPion XL 150 MG TABLET PO SCH (09:00)
[2023-08-18] MEDS ORDERED: METOPROLOL 5 MG/5 ML VIAL IVP SCH (09:00)
[2023-08-18] MEDS ORDERED: hydrALAZINE INJ 20 MG/ML VIAL IVP SCH (09:00)
--- NOTE | 2023-08-18 14:09 | Discharge Plan ---
Discharge Plan Problem Reviewed?: Yes Disposition: Home, Self Care Condition: Fair Diet: Diabetic (Please eat a soft, easily digestible, low fiber diet for the next 3 to 4 days) Activity Restrictions: Activity as Tolerated Shower Restrictions: No Driving Restrictions: No Instruction Topics: Obstruction Sm Bowel Health Concerns: You were hospitalized to manage abdominal pain, nausea and vomiting which we found was from a bowel obstruction. You needed "conservative" treatment which included bowel rest and decreasing distention from above, in your stomach. Therefore you had tube drainage of your stomach. Once your bowels started to move, your diet was resumed and you are tolerating this. You are being discharged home today and advised to eat a soft diet, easy to digest, low in fiber, and fluids are highly recommended. Please resume your usual insulin pump management of your sugars, in parallel with these dietary restrictions. If you start to develop abdominal pain, nausea and vomiting again, try going backwards to just a clear liquid diet, call your PCP for advice, or come back to the ER. Please resume all your usual pre-hospital medications and management. Please see your Primary Care Provider in the next 5 to 10 days for a hospital follow-up visit. Plan of Treatment: As above. Care Goals: Improvement in symptoms and stabilization are the goals. Assessment: The patient understands and is agreeable with the plan. No Smoking: If you smoke, Please STOP! Call for help.
--- NOTE | 2023-08-18 14:11 | DISCHARGE SUMMARY ---
"Discharge Summary Admit Date: 08/16/23 Discharge Date: 08/18/23 Discharging Provider: Dr Tanesha Stroud Primary Care Provider: Dr Navjot Shea Condition at Discharge: Fair Discharge Disposition: 01 Home, Self Care - HPI History of Present Illness: This is a 63-year-old male with a history of diabetes on insulin, CAD with CABG and renal transplant done 2 and half years ago, followed by . The patient presented to the ED with several hours of abdominal pain, nausea and vomiting. This occurred after eating duarte dinner. Work-up in the ED with imaging showed small bowel obstruction versus ileus. A general surgery consult was obtained and Dr. Ocampo advised that the transplant team be contacted to see if the patient needs transfer to their facility. Our ED provider spoke to providers who stated that he could be managed here. Labs showed a creatinine of 1.4 which is the patient's baseline. NG tube was placed in the ER. The ED provider then spoke to me on the Hospitalist team to have the patient admitted for managing SBO in a renal transplant patient. - CONSULTS | PROCEDURES Consultations: Dr Ocampo, Gen Surgery - HOSPITAL COURSE Hospital Course: (1) Small bowel obstruction Patient has never had SBO before. He could not get Gastrograffin due to allergy /intolerance to it. He was managed with iv fluids, bowel rest, ng tube decompression, and he eventually developed bowel sounds, a diet was started, he passed gas and had a BM. He was discharged with advice to continue a soft diet. (2) DM type 2 (diabetes mellitus, type 2) He is usually on an Insulin pump, which he took off and the took it home. His A1c came back at 7.1. We managed him with low dose of long-acting insulin (Semglee 5 U sq BID) and sliding scale Insulin overage. (3) Hypomagnesemia Due to losses from vomiting. It was replaced w/ Mg rider. (4) Renal transplant recipient According to the discussion between the [facility] provider and our ED provider, his creatinine of 1.4 is at its baseline. The patient was kept on his Tacrolimus and Prednisone 5 mg daily, and a Tacrolimus blood level was a send out lab. The result was pending at time of discharge. (5) HTN BP was elevated, probably from pain and not being on his usual po meds. He got iv Hydralazine while NPO, then his usual po meds were eventually resumed. (6) CAD (coronary artery disease) Patient has a history of CABG, and he was on nitrates and daily aspirin. While here, we used topical NTP temporarily. (7) JAY JAY on CPAP We continued his home CPAP device while here. - ALLERGIES Allergies/Adverse Reactions: Allergies Allergy/AdvReac Type Severity Reaction Status Date / Time methylphenidate AdvReac Rash Verified 08/15/23 23:59 Penicillins AdvReac Rash Verified 08/15/23 23:59 pramipexole AdvReac Rash Verified 08/15/23 23:59 simvastatin AdvReac Rash Verified 08/15/23 23:59 - MEDICATIONS Home Medications: Ambulatory Orders Medication Instructions Recorded Confirmed Aspirin Chewable [St [place] 81 mg PO DAILY 05/02/19 08/16/23 Aspirin] Insulin Lispro [Humalog] 1 unit SQ PRN PRN 05/02/19 08/16/23 Levothyroxine [Synthroid] 125 mcg PO DAILY 05/02/19 08/16/23 Pravastatin [Pravachol] 40 mg PO DAILY 05/02/19 08/16/23 buPROPion HCL [Bupropion HCl ER] 150 mg PO DAILY 05/02/19 08/16/23 Acetaminophen [Tylenol] 500 mg PO Q6H PRN 08/16/23 08/16/23 Calcium Carbonate [Tums (Calcium 1,000 mg PO DAILY PRN 08/16/23 08/16/23 Carbonate 500mg)] Famotidine [Acid Shield Operator] 20 mg PO DAILY 08/16/23 08/16/23 Ferrous Sulfate 325 mg PO DAILY 08/16/23 08/16/23 Gabapentin 400 mg PO QPM 08/16/23 08/16/23 Gabapentin [Neurontin] 100 mg PO DAILY 08/16/23 08/16/23 Isosorbide Mononitrate ER [Imdur] 30 mg PO DAILY 08/16/23 08/16/23 Lisinopril [Zestril] 2.5 mg PO DAILY 08/16/23 08/16/23 Magnesium Oxide 400 mg PO BID 08/16/23 08/16/23 Multivit-Min/Iron Fum/Folic AC 1 each PO DAILY 08/16/23 08/16/23 [One-A-Day Women's Complete Tab] Mycophenolate Sodium [Myfortic] 180 mg PO BID 08/16/23 08/16/23 Tacrolimus [Prograf] 3.5 mg PO QPM 08/16/23 08/16/23 Tacrolimus [Prograf] 4 mg PO DAILY 08/16/23 08/16/23 Tamsulosin HCl [Flomax] 0.4 mg PO QPM 08/16/23 08/16/23 predniSONE [Deltasone] 5 mg PO DAILY 08/16/23 08/16/23 - PHYSICAL EXAM AT DISCHARGE General Appearance: positive: No acute distress, Alert Eyes Bilateral: positive: Normal inspection, EOMI ENT: positive: ENT inspection nml, No signs of dehydration Neck: positive: Nml inspection, No JVD Respiratory: positive: No respiratory distress, Breath sounds nml Cardiovascular: positive: Regular rate & rhythm, No murmur Abdomen: positive: Non-tender, Nml bowel sounds, No distention, Other (Palpable transplanted kidney in RLQ) Skin: positive: Warm, Dry Extremities: positive: Non-tender, No pedal edema Neurologic/Psychiatric: positive: Oriented x3, Motor nml - LABS Result Diagrams: 08/18/23 04:36 08/18/23 04:36 - DIAGNOSTIC IMAGING Diagnostic Imaging Results: Final report reviewed - FOLLOW UP Follow Up: See PCP after discharge. - TIME SPENT Time Spent in Discharge (Minutes): 45"
[2023-08-18] MEDS ORDERED: MYCOPHENOLATE 180 MG PO SCH (21:00)
[2023-08-18] MEDS ORDERED: GABAPENTIN 400 MG CAPSULE PO SCH (21:00)
== END 2023-08-18 14:37 | disposition home or self-care (01) | DRG 389 ==
LOC: EDUNIT# → ED 23:50 → MS2 08-16 08:11
PROVIDERS: ADMIT Internal Medicine; ATTEND Internal Medicine
DX: K56.609 Unspecified intestinal obstruction, unspecified as to partial versus complete obstruction (principal); E10.9 Type 1 diabetes mellitus without complications; Z94.0 Kidney transplant status; E83.42 Hypomagnesemia; I10 Essential (primary) hypertension; I25.10 Atherosclerotic heart disease of native coronary artery without angina pectoris; G47.33 Obstructive sleep apnea (adult) (pediatric); E11.42 Type 2 diabetes mellitus with diabetic polyneuropathy; M19.90 Unspecified osteoarthritis, unspecified site; E78.00 Pure hypercholesterolemia, unspecified; E11.65 Type 2 diabetes mellitus with hyperglycemia; K56.7 Ileus, unspecified; Z79.4 Long term (current) use of insulin; Z79.52 Long term (current) use of systemic steroids; Z79.82 Long term (current) use of aspirin; Z79.890 Hormone replacement therapy; Z79.899 Other long term (current) drug therapy; Z91.041 Radiographic dye allergy status; Z95.1 Presence of aortocoronary bypass graft; Z95.5 Presence of coronary angioplasty implant and graft; Z96.41 Presence of insulin pump (external) (internal)
CPT/HCPCS: 36415; 74018; 74176; 80048; 80053; 80197; 81003; 83036; 83690; 83735; 84100; 84443; 84484; 85025; 93005; 96374; 96375; 96376; 99285; A9270; J0131; J1170; J1815; J7512; 81001; 87086